=== PATIENT | female | born 2005 | race Caucasian/White ===

== ENCOUNTER 2024-11-28 15:10 | Emergency (ER) | payer OTHER, SELFPAY ==
--- NOTE | ~2024-11-28 | CT_ITS ---
History: Fall PROCEDURE: CT head without contrast. COMPARISON: None TECHNIQUE: Axial imaging of the head performed from the skull base to the vertex without IV contrast. Sagittal a nd coronal reformations obtained. DLP: 605 mGy-cm FINDINGS: The ventricles are normal in size, shape and position. There is no mass, mass effect or midline shift. There is no abnormal extra-axial fluid collection or intracranial hemorrhage. Visualized paranasal sinuses are clear. The mastoid air cells are well aerated. No acute displaced fractures within the overlying cranium. Impression: No acute intracranial hemorrhage or suspicious mass effect. Reviewed, dictated and finalized at location A. HIATRIC NURSING AIDE Impression: No acute intracranial hemorrhage or suspicious mass effect.
[2024-11-28 15:18] VITALS: BP 124/81; PULSE 82; RESP 17; TEMP 36.6; O2SAT 99
--- NOTE | 2024-11-28 15:54 | ED_ITS ---
HPI - Fall General Chief Complaint: Fall <Justine Martinez PA-C - Last Filed: 11/28/24 18:56> Stated Complaint: fall, head injury <Justine Martinez PA-C - Last Filed: 11/28/24 18:56> Time Seen by Provider: 11/28/24 17:03 <Justine Martinez PA-C - Last Filed: 11/28/24 18:56> Focused HPI: 18-year-old female presents emergency department for a head injury that occurred a couple hours prior to arrival. Patient states she was using her electric long board when she fall and hit the right side of her head. She did not lose consciousness. She is not anticoagulated. She also obtained abrasions to her right elbow right knee. Vaccines are up-to-date. Denies neck pain or back pain, other injuries acquired GENERAL: Well-appearing, well-nourished, and in no acute distress. HEAD: Normocephalic, atraumatic. No scalp tenderness, lacerations or abrasions, crepitus or deformities NECK/BACK: No cervical, thoracic or lumbar spinous tenderness, crepitus, step- offs or deformities CHEST: Clear to auscultation. ?No respiratory distress. EXT: Superficial abrasions to the right elbow and right knee with no active bleeding, full active and passive range of motion of joints HEART: Regular rate and rhythm.? NEURO: ?Alert and oriented x3. Patient screened in triage and initial orders placed.? ?Additional care and disposition to be based upon?diagnostic testing and treatment. <Justine Martinez PA-C - Last Filed: 11/28/24 18:56> Review of Systems Review of Systems: CONSTITUTIONAL: Denies fever EYES: Denies visual changes GASTROINTESTINAL: Denies vomiting MUSCULOSKELETAL: Denies back pain, joint pain, or myalgia. NEUROLOGIC: Reports headache. Denies numbness, or weakness. <Dotty Carlson PA-C - Last Filed: 11/28/24 18:10> All systems reviewed & are unremarkable except as noted in HPI and below <Dotty Carlson PA-C - Last Filed: 11/28/24 18:10> PMFSH Past Medical History Medical History: Medical History (Updated 11/28/24 @ 18:09 by Dotty Carlson PA-C) No active medical problems <Justine Martinez PA-C - Last Filed: 11/28/24 18:56> Social History Social History: Social History (Updated 11/28/24 @ 18:09 by Dotty Carlson PA-C) Substance use: never <Justine Martinez PA-C - Last Filed: 11/28/24 18:56> Exam Narrative: GENERAL: Well-appearing, well-nourished, and in no acute distress. HEAD: Normocephalic, atraumatic. EYES: PERRLA and EOMI. ENT: Nares clear, no rhinorrhea or epistaxis. Mucous membranes moist. Oropharynx without tonsillar hypertrophy exudate or other lesions. Bilateral TMs pearly mitchell non-bulging NECK: Supple. No adenopathy or masses. No midline spinal tenderness CHEST: Clear to auscultation. No respiratory distress. No wheezes rales or rhonchi HEART: Regular rate and rhythm. No murmur heard. Normal peripheral pulses. BACK: No midline spinal tenderness EXTREMITIES: Normal range of motion. No edema or obvious deformity. Strength equal in bilateral upper and lower extremities (5/5) SKIN: Warm, dry, no rash. NEURO: No focal deficits. Alert and oriented x3. Cranial nerves 2-12 grossly intact PSYCH: Normal mood and affect <Dotty Carlson PA-C - Last Filed: 11/28/24 18:10> Course Course Emergency Course: Patient updated on her workup and agrees with plan of care <Dotty Carlson PA-C - Last Filed: 11/28/24 18:10> Vital Signs Vital signs: Vital Signs Temperature 98 F 11/28/24 15:18 Pulse Rate 82 11/28/24 15:18 Respiratory Rate 17 11/28/24 15:18 Blood Pressure 124/81 11/28/24 15:18 Pulse Oximetry 99 11/28/24 15:18 Oxygen Delivery Room Air 11/28/24 15:18 Temperature 97.8 F 11/28/24 18:32 Pulse Rate 78 11/28/24 18:32 Respiratory Rate 18 11/28/24 18:32 Blood Pressure 130/70 11/28/24 18:32 Pulse Oximetry 98 11/28/24 18:32 Oxygen Delivery Room Air 11/28/24 15:18 <Justine Martinez PA-C - Last Filed: 11/28/24 18:56> Vital Signs Temperature 98 F 11/28/24 15:18 Pulse Rate 82 11/28/24 15:18 Respiratory Rate 17 11/28/24 15:18 Blood Pressure 124/81 11/28/24 15:18 Pulse Oximetry 99 11/28/24 15:18 Oxygen Delivery Room Air 11/28/24 15:18 Temperature 97.8 F 11/28/24 18:32 Pulse Rate 78 11/28/24 18:32 Respiratory Rate 18 11/28/24 18:32 Blood Pressure 130/70 11/28/24 18:32 Pulse Oximetry 98 11/28/24 18:32 Oxygen Delivery Room Air 11/28/24 15:18 <Dotty Carlson PA-C - Last Filed: 11/28/24 18:10> MDM - Fall MDM Narrative Medical decision making narrative: Patient presents to the emergency department after a fall today with head injury. She is neurologically intact. CT brain without acute findings. Patient was updated on her workup and agrees with plan of care. Instructed on further care of concussion. She is to follow up with primary provider. She was given warnings to return to the ER <Dotty Carlson PA-C - Last Filed: 11/28/24 18:10> Differential Diagnosis Differential diagnosis: Likely concussion without loss of consciousness and other (Close head injury, subdural hematoma) <Dotty Carlson PA-C - Last Filed: 11/28/24 18:10> Imaging Data Radiologist's impression: ITS Impressions Head CT 11/28/24 17:18 Impression: No acute intracranial hemorrhage or suspicious mass effect. <HUMBERTO Dwyer Last Filed: 11/28/24 18:10> Critical Care Time Critical Care Time Critical Care Time: No <HUMBERTO Dwyer Last Filed: 11/28/24 18:10> Discharge Plan Discharge Clinical Impression: Fall Qualifiers: Encounter type: initial encounter Qualified Code(s): W19.XXXA - Unspecified fall, initial encounter Head injury Qualifiers: Encounter type: initial encounter Qualified Code(s): S09.90XA - Unspecified injury of head, initial encounter <Justine Martinez PA-C - Last Filed: 11/28/24 18:56> Patient Disposition: Home, Self-Care <HUMBERTO Gaytan Last Filed: 11/28/24 18:56> Condition: Stable <HUMBERTO Gaytan Last Filed: 11/28/24 18:56> Instructions: Concussion (ED), Head Injury (ED) <HUMBERTO Gaytan Last Filed: 11/28/24 18:56> Additional Instructions: Return to the emergency department if you experience fever, vision changes, vomiting, weakness, numbness, or any other symptoms that are concerning to you. Rest. Remain well hydrated. Tylenol or ibuprofen as needed for pain Follow up with primary care doctor <Justine Martinez PA-C - Last Filed: 11/28/24 18:56> Patient Language: Maltese <Justine Martinez PA-C - Last Filed: 11/28/24 18:56> Follow-up/Referrals: PHYSICIAN,RADIATION THERAPY TECHNOLOGIST [Non-Staff] - Allen Price MD [Physician] - <HUMBERTO Gaytan Last Filed: 11/28/24 18:56>
--- OUTSIDE RECORDS SUMMARY | 2024-11-28 17:36 | XMS_ITS | Patient Health Summary ---
Author Organization [facility] Address [address] [place] [address] Care Team Providers Care Demurrage Clerk Name Role Phone Ryland Iniguez MD Primary Care Provider [phone] [facility],non-owned Affiliates and Associated Physician Practices is amultiple site organization consisting of ambulatory clinics and hospital sitesin [place], [place], [place] and [place]. This disclosure is being madepursuant to the Care Everywhere program and may not contain all information available regarding this patient. Last updated 18.[facility] Allergies No known active allergies Medications * Be aware that medications may not be up to date on this document. Alwaysverify current medications with the patient. * dicyclomine (BENTYL) 10 MG capsule Take 10 mg by mouth 4 times daily * omeprazole (PRILOSEC) 40 MG capsule Take 40 mg by mouth daily before breakfast * amitriptyline (ELAVIL) 10 MG tablet Take 15 mg by mouth at bedtime * ALBUTEROL IN Active Problems Problem Noted Date Diagnosed Date Asthma IBS (irritable bowel syndrome) Social History Tobacco Use Types Packs/Day Years Used Date Smoking Tobacco: Never Smokeless Tobacco: Never Alcohol Use Standard Drinks/Week Comments No 0 (1 standard drink = 0.6 oz pur e alcohol) Sex and Gender Information Value Date Recorded Sex Assigned at Not on file Gender Identity Not on file Sexual Orientation Not on file Last Filed Vital Signs Vital Sign Reading Time Taken Comments Blood Pressure 106/64 05/15/2019 11:00 AM CDT Pulse 81 05/15/2019 11:00 AM CDT Temperature - - Respiratory Rate - - Oxygen Saturation - - Inhaled Oxygen Concentration - - Weight 58.1 kg (128 lb) 05/15/2019 11:00 AM CDT Height 166.4 cm (5' 5.5 ) 05/15/2019 11:00 AM CD T Body Mass Index 20.98 05/15/2019 11:00 AM CDT Body Mass Index Percentile 66.77% 05/15/2019 11: 00 AM CDT Growth Chart: [facility] (Girls, 2- 20 Years) Care Teams Demurrage Clerk Relationship Specialty [place] [address] [address] PCP - General Pediatrics 05/15/19
--- OUTSIDE RECORDS SUMMARY | 2024-11-28 17:36 | XMS_ITS | Referral Summary ---
Author Organization [facility] Address [address] [place] [address] Care Team Providers Care Instrument Lens Inspector Name Role Phone Ryland Iniguez MD Primary Care Provider [phone] Source Comments [facility],non-owned Affiliates and Associated Physician Practices is amultiple site organization consisting of ambulatory clinics and hospital sitesin [place], [place], [place] and [place]. This disclosure is being madepursuant to the Care Everywhere program and may not contain all information available regarding this patient. Last updated 18.[facility] Allergies No known active allergies Medications * Be aware that medications may not be up to date on this document. Alwaysverify current medications with the patient. Medication Sig Dispensed Refills Start Date End Date Status dicyclomine (BENTYL) 10 MG capsule Take 10 mg by mouth 4 times daily Active omeprazole (PRILOSEC) 40 MG capsule Take 40 mg by mouth daily before breakfast Active amitriptyline (ELAVIL) 10 MG tablet Take 15 mg by mouth at bedtime Active ALBUTEROL IN Active Active Problems Problem Noted Date Diagnosed Date [...] 05/15/2019 11: 00 AM CDT Growth Chart: [facility] (Girls, 2- 20 Years) Plan of Treatment Not on file Care Teams Instrument Lens Inspector Relationship Specialty [place] [address] [facility] [address] [place] [id number] PCP - General Pediatrics 05/15/19
--- OUTSIDE RECORDS SUMMARY | 2024-11-28 17:36 | XMS_ITS | Patient Health Record ---
Author Organization [facility] Address [address] [place] [address] [place] [address] Care Team Providers Care Edger Machine Operator Name Role Phone SalomónRyland vaughan Primary Care Provider Unavaila patel Lara MD, Magdaleno Unavailable [phone] ALLERGIES No Known Allergies REASON FOR REFERRAL No Information MEDICATIONS Medication SIG (Take, Route, Frequency, Duration) Notes Start Date End Date Status Zafemy Active Naproxen Active Zoloft Active IMMUNIZATIONS Vaccine Route Administration Date Status Comme nts Influenza Unknown 01/29/2023 Administered pneumoccocal Unknown 01/29/2023 Administered SOCIAL HISTORY Tobacco Use: Social History Observation Description Date Details (start date - stop date) Never Smoker NA - NA Sex Assigned At : Social History Observation Description Sex Assigned At Unknown Tobacco Use: Question Answer Notes Patient is a: nonsmoker Alcohol screening: Question Answer Notes Did you have a drink containing alcohol in the p ast year? No Points 0 Interpretation Negative PROBLEMS Problem Type ICD Code Onset Dates Problem Status W/U Status Risk SNOMED Code Notes Problem Patellar tendinitis, right knee (M76.51) 01/22/2023 Active confirmed [id number] PLAN OF TREATMENT No Information Insurance Providers Payer Name Payer Address Payer Phone Subscriber Number Group Number Insured Name Patient Relationship to Insured Coverage Start Date Coverage End Date Cigna [address] BRENDA CINTRON, JACKELYN [phone] [id number] Sp Askew [facility] Child - Insured has Financial Responsibility MEDICAL (GENERAL) HISTORY Medical History History ICD Code depression asthma Surgical History Surgery Date(Month/Year)
--- OUTSIDE RECORDS SUMMARY | 2024-11-28 17:36 | XMS_ITS | Continuity of Care Document ---
Author Organization [facility] Address [address] [place] [address] Phone Care Team Providers Care Cafe Worker Name Role Phone Heather COOK, Jyoti Unavailable Unavailable Allergies, Adverse Reactions, Alerts Substance Reaction Status Criticality No Known Allergies Active No Inform ation Medications Medication Instructions Dosage Effective Dates (start - stop) Status Comments DYMISTA (unknown strength) Not Available - Active Advance Directives Directive Yes / No Effective Date File Name No Information Encounters Encounter Description Practice Location Reason(s) For Visit Diagnoses Date Provider Providers Copied on Encounter [facility], [address], [facility], [phone] [facility] No Information 6 Heather Montes. [address] [facility] [address], [place], [id number] . tel: [phone] [facility], [address] [facility] [address], [place], [facility], tel:[phone] [facility] Medial tibial stress syndrome, right, initial encounterMedial tibial stress syndrome, left, initial encounter 6 Heather Montes. [address] [facility] [address], [place], [id number] . tel: [phone] Family History Family Member Type Diagnosis Age At Onset No Information Payers Payer name Insurance type Covered constitution party ID Authoriza tion(s) No Information Social History Type Description Quantity Date Captured Comments Sex Female Smoking Status No Information Chief Complaint And Reason For Visit No Information Reason For Referral Reason For Referral No Information History Of Present Illness Encounter Date Complaint History Of Prese nt Illness No Information Functional Status Date Functional Assessmen t No Information Instructions Date Instruction Additional Infor mation No Information Assessments Type Assessment Date No Information Patient Care Teams Name Effective Dates (start - stop) Status Members No Information
--- OUTSIDE RECORDS SUMMARY | 2024-11-28 17:36 | XMS_ITS | Clinical Summary ---
Author Organization [facility] Address [address] [place] [address] Care Team Providers Care Fish Cutting Machine Operator Name Role Phone No, Physician Primary Care Provider [phone] Ryland Iniguez MD Unavailable [phone] Allergies No known active allergies Medications albuterol HFA (PROVENTIL HFA,VENTOLIN HFA,PROAIR HFA) 90 mcg/actuation inhaler INL 1 PUFF PO Q 4 TO 6 H PRF SOB OR WHZ 0 04/01/2019 Active sertraline (Zoloft) 50 mg tablet 1 tablet by oral route daily 06/07/2022 Active Zafemy 150-35 mcg/24 hr 09/18/2022 Active Active Problems Problem Noted Date Diagnosed Date Patellofemoral chondrosis of right knee 02/29/20 23 Weakness of right hip 02/28/2023 Asthma 11/21/2022 Patellar subluxation, right, initial encounter 0 11/21/2022 Constipation 11/19/2020 IBS (irritable bowel syndrome) 01/21/2020 Anxiety 01/01/2020 Syncope 07/28/2015 Abnormal electrocardiography 07/28/2015 Syncope and collapse 07/28/2015 Atopic conjunctivitis 02/13/2014 Migraine 01/23/2013 Allergic rhinitis 08/17/2007 Esophageal reflux 02/23/2005 Medical History Medical History Date Comments Asthma GERD (gastroesophageal reflux disease) Asthma due to seasonal allergies Gluten intolerance Dairy product intolerance IBS (irritable bowel syndrome) Family History Medical History Relation Name Comments Arthritis Maternal Grandmother Diabetes Mother Low Back Pain Mother Scoliosis Mother Relation Name Status Comments Maternal Grandmother Mother Social History Tobacco Use Types Packs/Day Years Used Date Smoking Tobacco: Never Smokeless Tobacco: Never Tobacco Cessation:Counseling Given: No Alcohol Use Standard Drinks/Week Comments Never 0 (1 standard drink = 0.6 oz pur e alcohol) AUDIT-C Answer Date Recorded Frequency of Alcohol Consumption Never 06/25/2019 Average Number of Drinks Not on file 019 Frequency of Binge Drinking Not on file 01/2019 Personal Safety Answer Date Recorded Getting School Help Needed Not on file 12/16 Comments No Sex and Gender Information Value Date Recorded Sex Assigned at Not on file Legal Sex Female 12:38 AM [employer] Gender Identity Not on file Sexual Orientation Not on file Obstetrics History Growth Chart Information Age Height Weight Jidjub-hmo-ezqw th Percentile BMI Percentile Head Circum Head Circum Percentile Date 17 years 75.6 kg (166 lb 11.2 oz) 2022 16 years 76.4 kg (168 lb 8 oz) 2022 13 years 164 cm (5' 4.57 ) 58.6 kg (129 lb 3.2 oz) 73.42%* 2018 9 years 154 cm (5' 0.63 ) 41 kg (90 lb 6.2 oz) 51.57%* 2014 * [facility] (Girls, 2-20 Years) Last Filed Vital Signs Vital Sign Reading Time Taken Comments Blood Pressure 118/66 07/30/2015 11:10 AM CDT Pulse 77 07/30/2015 11:10 AM CDT Temperature - - Respiratory Rate - - Oxygen Saturation - - Inhaled Oxygen Concentration - - Weight 75.6 kg (166 lb 11.2 oz) 02/27/2023 3:15 PM CDT Height 164 cm (5' 4.57 ) 06/25/2019 4:58 PM CDT Body Mass Index - - Plan of Treatment Health Maintenance Due Date Last Done Comments Depression Screening 2004 Hepatitis C Screening 2004 Varicella Vaccines (2 of 2 - 2-dose childhood series) 05/09/2010 02/14/2010 Pneumococcal vaccine <65 (1 of 1 - PPSV23 or PCV20) 2010 03/29/2006, 07/04/2005, 04/25/2005, Additional history exists DTaP/Tdap/Td Vaccine (6 - Tdap) 12/25/2015 02/14/2010, 03/29/2006, 07/04/2005, Additional history exists HPV Vaccines (2 - 3-dose series) 04/21/2022 03/24/2022 Meningococcal B Vaccine (2 of 2 - Risk Bexsero 2-dose series) 04/21/2022 03/24/2022 Regular Well Visit/Exam 18-64 2022 Covid-19 Vaccine ( season) 2024 10/17/2021, 03/01/2021, 02/08/2021 Influenza Vaccine (#1) 2024 7, 08/17/2007, 10/31/2005, Additional history exists Meningococcal Vaccine Aged Out No michelle maco eligible based on patient's age to complete this topic Insurance FootnoteNA FootnoteNA CIGNA CIGNA CIGNA CIGFABIO Care Teams Fish Cutting Machine Operator Relationship Specialty Start Date End Date No, Physician PCP - General 02/20/23 [place] [address] [address] 02/20/23
--- OUTSIDE RECORDS SUMMARY | 2024-11-28 17:36 | XMS_ITS | Clinical Summary ---
Author Organization [facility] Address [address] [place] [address] Care Team Providers Care Clinical Reviewer Name Role Phone Ryland Iniguez MD Primary Care Provider [phone] Source Comments [facility],non-owned Affiliates and Associated Physician Practices is amultiple site organization consisting of ambulatory clinics and hospital sitesin [place], [place], [place]. This disclosure is being madepursuant to the Care Everywhere program and may not contain all information available regarding this patient. Last updated 18.[facility] Allergies No known active allergies Medications * [...] Diagnosed Date Asthma IBS (irritable bowel syndrome) Family History Relation Name Status Comments Father Alive Mother Alive Social History Tobacco Use Types Packs/Day Years [...] 05/15/2019 11: 00 AM CDT Growth Chart: [facility] (Girls, 2- 20 Years) Plan of Treatment Health Maintenance Due Date Last Done Comments HIV SCREENING 12/25/2019 HPV VACCINE (1 - 3-dose series) 12/25/2019 CHLAMYDIA/GONORRHEA SCREENING 2020 MENINGOCOCCAL (Group B) VACC INE (1 of 2 - Standard) 2020 HEPATITIS C SCREENING 12/20/2022 DTAP/TDAP/TD VACCINES (1 - Tdap) 12/25/2023 HEPATITIS B VACCINE (1 of 3 - 19+ 3-dose series) 12/25/2023 PNEUMOCOCCAL VACCINE (1 of 2 - PCV) 12/25/2023 COVID-19 VACCINE (1 - 2023-2 5 season) 2024 INFLUENZA VACCINE (#1) 2024 DEPRESSION SCREENING 10/22/2024 ZOSTER VACCINE (1 of 2) 2054 HIB VACCINE Aged Out No longer eligi ble based on patient's age to complete this topic MENINGOCOCCAL VACCINE Aged Out No michelle maco eligible based on patient's age to complete this topic Care Teams Clinical Reviewer Relationship Specialty [place] [address] [place] [address] PCP - General Pediatrics 05/15/19
--- OUTSIDE RECORDS SUMMARY | 2024-11-28 17:36 | XMS_ITS | Continuity of Care Document ---
Author Organization [facility] Address [address] [place] [address] Phone Care Team Providers Care Card Puncher Name Role Phone Ryland Iniguez MD Unavailable Unavailable Allergies, Adverse Reactions, Alerts Substance Reaction Status Criticality No Known Allergies Active No Inform ation Medications Medication Instructions Dosage Effective Dates (start - stop) Status Comments Zoloft 50 mg tablet 1 tablet by oral route daily - Active 90 day supply, stable on dose albuterol sulfate HFA 90 mcg/actuation aerosol inhaler 1 puff by inhalation route every 4 to 6 hours prn shortness of breath or wheezing - Active Aerochamber Plus Flow-Vu use with mdi - Active Flonase 50 mcg/actuation nasal spray,suspension spray 2 spray by intranasal route every day in each nostril - Active Gas-X Extra Strength 125 mg capsule - Active Vitamin D3 Complete 18 mg iron-800 mcg-150 mg tablet - Active Procedures Procedure Date Brief Emotional/Behavioral A ssessment, With Scoring/Doct, Per [facility] Instrument Clin depression screen doc Brief Emotional/Behavioral A ssessment, With Scoring/Doct, Per [facility] Instrument OFFICE BULZG-YLQ-GTLUNLFL BODY MASS INDEX DOCD SYST BP LT 130 MM HG DIAST BP < 80 MM HG SCREENING TEST OF VISUAL ACUITY, QUANTIT ATIVE, BILATERAL Brief Emotional/Behavioral A ssessment, With Scoring/Doct, Per [facility] Clin depression screen doc Brief Emotional/Behavioral A ssessment, With Scoring/Doct, Per [facility] Instrument AUDIOGRAM, SCREENING PREVENTATIVE-EST: 18- BODY MASS INDEX DOCD SYST BP LT 130 MM HG DIAST BP < 80 MM HG IMADM ANY ROUTE 1ST VAC/TOX (Bexsero) Meningococcal Recombinant, Pro tein/Outer Membrane Brief Emotional/Behavioral A ssessment, With Scoring/Doct, Per [facility] Instrument Clin depression screen doc Brief Emotional/Behavioral A ssessment, With Scoring/Doct, Per [facility] Instrument OFFICE CMULT-DSL-EUFKDBFZ BODY MASS INDEX DOCD SYST BP LT 130 MM HG DIAST BP < 80 MM HG OFFICE EHGAC-PQU-SWNJJJBK TEST, HCG, QL (U) ESSE 2021 OFFICE ZGJMI-ETQ-PLZZEWQI OFFICE BLLTQ-XUV-WBPALBIT Brief Emotional/Behavioral A ssessment, With Scoring/Doct, Per St[facility] Instrument Brief Emotional/Behavioral A ssessment, With Scoring/Doct, Per [facility] Instrument Clin depression screen doc PREVENTATIVE-EST: 10-07 BODY MASS INDEX DOCD IMMUN ADMIN (INC PERCUTANEOUS) EACH ADDT L HPV IM Types 6, 11, 16, 18, 31, 33, 45, 58 NONVALENT 9vHPV 3 DOSE SCHED IMMUN ADMIN (INC PERCUTANEOUS) SINGLE, F IRST INJ (Bexsero) Meningococcal Recombinant, Pro tein/Outer Membrane OFFICE OSDWQ-LSY-UMARKMVQ OFFICE WSWPR-GIP-BPIJMOIU OFFICE JJVML-JTF-CUHAWUAM COVID-19, Amplified Probe Technique Brief Emotional/Behavioral A ssessment, With Scoring/Doct, Per [facility] Instrument Clin depression screen doc Brief Emotional/Behavioral A ssessment, With Scoring/Doct, Per [facility] Instrument HPV IM Types 6, 11, 16, 18, 31, 33, 45, 58 NONVALENT 9vHPV 3 DOSE SCHED IMADM ANY ROUTE 1ST VAC/TOX MENACTRA MENINGOCOCCAL CONJUGATE, QUAD, VACCINE PREVENTATIVE-EST: - OFFICE WUQCU-XSR-WBBNDPHG BODY MASS INDEX DOCD OFFICE TGFDB-PCC-UKTHTZHY Brief Emotional/Behavioral A ssessment, With Scoring/Doct, Per [facility] Instrument Clin depression screen doc Brief Emotional/Behavioral A ssessment, With Scoring/Doct, Per St[facility] Instrument OFFICE ELKVF-ARI-TXGTNMCG BODY MASS INDEX DOCD Brief Emotional/Behavioral A ssessment, With Scoring/Doct, Per Stndrd Instrument Brief Emotional/Behavioral A ssessment, With Scoring/Doct, Per [facility] Instrument Pt inelig neg scrn depres OFFICE YSHXF-UYN-DDGEMAMK BODY MASS INDEX DOCD Brief Emotional/Behavioral A ssessment, With Scoring/Doct, Per [facility] Instrument Clin depression screen doc Brief Emotional/Behavioral A ssessment, With Scoring/Doct, Per [facility] Instrument OFFICE RENRV-RBA-QQWXZMPP Brief Emotional/Behavioral A ssessment, With Scoring/Doct, Per [facility] Instrument Clin depression screen doc Brief Emotional/Behavioral A ssessment, With Scoring/Doct, Per St[facility]rd Instrument IMADM ANY ROUTE 1ST VAC/TOX HPV IM Types 6, 11, 16, 18, 31, 33, 45, 58 NONVALENT 9vHPV 3 DOSE SCHED PREVENTATIVE-EST: 10-07 BODY MASS INDEX DOCD OFFICE NZYES-NWC-YCRQHFSF RAPID STREP A CULTURE, PRESUMPATIVE, SCREENING ONLY Se Advance Directives Directive Yes / No Effective Date File Name Life Support Not Answered N/A N/A Intubation Not Answered N/A N/A Antibiotics Not Answered N/A N/A IV Fluid Support Not Answered N/A N/A Tube Feed Not Answered N/A N/A Other Directive N/A N/A WARNING:The information contained in this section is historical and is provided for information only and does not constitute a legal document or any assurance that the information is still accurate. Please verify the information with the day of the legal document before using it for clinical purposes. Encounters Encounter Description Practice Location Reason(s) For Visit Diagnoses Date Provider Providers Copied on Encounter [facility], [address], [place], [place], [address] , tel: [phone] [facility] No Information 4 Hira Marcelino. [address] [address], [place], [place], [address], [place]. tel:[phone] [facility], [address], [place], [place], [address] , tel: [phone] [facility] No Information 4 Hira Marcelino. [address] [facility] [address], [place], [place], [address], [place]. tel:[phone] OFFICE KLFAS-GTK-VO PANDED [facility], [address], [place], [place], [address] , [place] tel:[phone] [facility] anxiety and depression (chief complaint) Anxiety 4 Hira Marcelino. [address] [place] [address], [address], [place], [place], [address], [place]. tel:[phone] Referring Provider: Ryland Iniguez , [address] [place] [address] [address], [place], [address] . tel:[phone] PREVENTATIVE -EST: 18-39 [facility], [address], [place], [place], [address] , [place] tel:[phone] [facility] well exam (chief complaint)a nxiety and depression (chief complaint) Encounter for routine child health examination without abnormal findingsAnxietyP ain, joint, knee, leftDysmenorrhea in adolescentDyspep siaDepression, unspecified depression typeSeasonal allergic rhinitis due to pollenMaternal family history of cancerIrritable bowel syndrome, unspecified typeGender dysphoria of adolescence 3 Hira Marcelino. [address] [place] [address], [address], [place], [place], [address], [place]. tel:[phone] Referring Provider: Ryland Iniguez , [address] [place] [address] [address], [place], [address] . tel:[phone] OFFICE CCESR-DMZ-DU [facility], [address], [place], [place], [address] , [place] tel:[phone] [facility] anxiety and depression (chief complaint) AnxietyPain, joint, knee, left 3 Hira Marcelino. [address] [place] [address], [address], [place], [place], [address], [place]. tel:[phone] Referring Provider: Ryland Iniguez , [address] [place] [address] [address], [place], [address] . tel:[phone] OFFICE JUSZO-LCY-ZD TAILED [facility], [address], [place], [place], [address] , [place] tel: [phone] [facility] acute problem (chief complaint) DysmenorrheaMate rnal family history of cancer 2 Freddie Mendoza. [address] [facility], [place], [place], [address], [place]. tel:[phone] Referring Provider: Ryland Iniguez , [address] [place] [address] [address], [place], [address] . tel:[phone] OFFICE EXSBC-URZ-EL [facility], [address], [place], [place], [address] , [place] tel: [phone] [facility] acute problem (chief complaint) Dyspepsia 2 Hira Marcelino. [address] [place] [address], [address], [place], [place], [address], [place]. tel:[phone] Referring Provider: Ryland Iniguez , [address] [place] [address] [address], [place], [address] . tel:[phone] OFFICE AWJMQ-TZH-TH [facility], [address], [place], [place], [address] , [place] tel:[phone] [facility] acute problem (chief complaint) Depression, unspecified depression typeAnxietyStrai n of right trapezius muscle, initial encounter 2 Hira Marcelino. [address] [place] [address], [address], [place], [place], [address], [place]. tel:[phone] Referring Provider: Ryland Iniguez , [address] [place] [address] [address], [place], [address] . tel:[phone] PREVENTATIVE -EST: 1217 [facility], [address], [place], [place], [address] , [place] tel: [phone] [facility] well exam (chief complaint) Encounter for routine child health examination without abnormal findingsIrritabl e bowel syndrome, unspecified typeAnxietySeaso nal allergic rhinitis due to pollenDepression , unspecified depression typeIntractable migraine without status migrainosus, unspecified migraine type 2 Hira Marcelino. [address] [place] [address], [address], [facility], [place], [address], [place]. tel:[phone] Referring Provider: Ryland Iniguez , [address] [place] [address] [address], [place], [address] . tel:[phone] [facility], [address], [place], [place], [address] , [place] tel:[phone] [facility] No Information Mar- 2 Hira Marcelino. [address] [place] [address], [address], [facility], [place], [address], [place]. tel:[phone] Referring Provider: Ryland Iniguez , [address] [place] [address] [address], [place], [address] . tel:[phone] OFFICE WNRSB-OCI-NI [facility], [address], [place], [place], [address] , [place] tel:[phone] [facility] acute problem (chief complaint) Low back pain, unspecified back pain laterality, u 2 Hira Marcelino. [address] [place] [address], [address], [place], [place], [address], [place]. tel:[phone] Referring Provider: Ryland Iniguez , [address] [place] [address] [address], [place], [address] . tel:[phone] OFFICE HMFUW-LJV-TK [facility], [address], [place], [place], [address] , [place] tel:[phone] [facility] acute problem (chief complaint) Low back pain, unspecified back pain laterality, u 2 Hira Marcelino. [address] [place] [address], [address], [facility], [place], [address], [place]. tel:[phone] Referring Provider: Ryland Iniguez , [address] [place] [address] [address], [place], [address] . tel:[phone] OFFICE XDQUW-SMQ-KU [facility] [address], [place], [place], [address] , [place] tel:[phone] [facility] acute problem (chief complaint) COVID-19 2 Ianbraden Marin. [address] [facility], [place], [place], [address], [place]. tel:[phone] Referring Provider: Ryland Iniguez , [address] [place] [address] [address], [place], [address] . tel:[phone] [facility], [address], [place], [place], [address] , [place] tel:[phone] [facility] No Information 1 Hira Marcelino. [address] [place] [address], [address], [place], [place], [address], [place]. tel:[phone] PREVENTATIVE -EST: 10-07 [facility], [address], [place], [place], [address] , tel: [phone] [facility] well exam (chief complaint)a cute problem (chief complaint) Encounter for routine child health examination without abnormal findingsSeasonal allergic rhinitis due to pollenIrritable bowel syndrome, unspecified typeAnxietyCough variant asthma 1 Hira Marcelino. [address] [place] [address], [address], [place], [place], [address], [place]. tel:[phone] Referring Provider: Ryland Iniguez , [address] [place] [address] [address], [place], [address] . tel:[phone] OFFICE QFZHW-JOI-WN [facility] [address], [place], [place], [address] , [place] tel:[phone] [facility] acute problem (chief complaint) Other urticaria 1 Kimo Marin. [address] [facility], [place], [place], [address], [place]. tel:[phone] Referring Provider: Ryland Iniguez , [address] [place] [address] [address], [place], [address] . tel:[phone] [facility], [address], [place], [place], [address] , tel: [phone] Care Management Problem related to psychosocial circumstancesAnx ietyDepression, unspecified depression type 1 Hira Marcelino. [address] [place] [address], [address], [place], [place], [address], [place]. tel:[phone] OFFICE CKDHA-RAW-RQ [facility], [address], [place], [place], [address] , tel: [phone] [facility] acute problem (chief complaint) AnxietyAbdominal painDepression, unspecified depression typeProblem related to psychosocial circumstances 1 Hira Marcelino. [address] [place] [address], [address], [place], [place], [address], [place]. tel:[phone] Referring Provider: Ryland Iniguez , [address] [place] [address] [address], [place], [address] . tel:[phone] OFFICE FPDQP-DMC-EI [facility], [address], [place], [place], [address] , tel:[phone] [facility] acute problem (chief complaint) AnxietySleep stage dysfunction Sep-0 2- 0 Hira Marcelino. [address] [place] [address], [address], [place], [place], [address], [place]. tel:[phone] Referring Provider: Ryland Iniguez , [address] [place] [address] [address], [place], [address] . tel:[phone] OFFICE ZOGSR-AMR-JN [facility], [address], [place], [place], [address] , tel:[phone] [facility] acute problem (chief complaint) AnxietySeasonal allergic rhinitis due to pollenSleep stage dysfunctionIrrit able bowel syndrome, unspecified type Apr-0 1-202 0 Hira Marcelino. [address] [place] [address], [address], [place], [place], [address], [place]. tel:[phone] Referring Provider: Ryland Iniguez , [address] [place] [address], [place], [address] . tel:[phone] PREVENTATIVE -EST: 12 [facility], [address], [place], [place], [address] , [place] tel: [phone] [facility] well exam (chief complaint) AnxietyAllergic rhinoconjunctivi tisSeasonal allergic rhinitis due to pollenProblem related to psychosocial circumstancesCou gh variant asthmaSleep stage dysfunctionDisor derMigraine without aura and without status migrainosus, not intractableEncou nter for routine child health examination with abnormal findingsAbdomina l pain 0 Hira Marcelino. [address] [place] [address], [address] [address], [place], [place], [address], [place]. tel:[phone] Referring Provider: Ryland Iniguze , [address] [place] [address], [place], [address] . tel:[phone] OFFICE QILEN-GEO-YB PANDED [facility], [address], [place], [place], [address] , [place] tel:[phone] [facility] acute problem (chief complaint) Acute upper respiratory infection, unspecifiedUnspe cified acute conjunctivitis, unspecified eye Sep-201 9 Dario Neal. [address] [place] [address], [address], [place], [place], [address], [place]. tel:[phone] Referring Provider: Ryland Iniguez , [address] [place] [address] [address] [facility], [place], [address] . tel:[phone] [facility], [address], [place], [place], [address] , tel:[phone] [facility] CoughMild intermittent asthma with acute exacerbationSuba cute sinusitis, unspecified location Jan-201 9 Hira Marcelino. [address] [place] [address], [address], [place], [place], [address], . tel:[phone] Referring Provider: Ryland Iniguez , [address] [place] [address] [address], [place], [address] . tel:[phone] [email or web address], [address], [place], [place], [address] , tel:[phone] [email or web address] Diarrhea, unspecified type Feb-0 9 Hira Marcelino. [address] [place] [address], [address], [place], [place], [address], [place]. tel:[phone] Referring Provider: Ryland Iniguez , [address] [place] [address] [address], [place], [address] . tel:[phone] [facility], [address], [place], [place], [address] , tel:[phone] [facility] Cough variant asthmaAcute upper respiratory infection, unspecified 8 Hira Marcelino. [address] [place] [address], [address], [place], [place], [address], [place]. tel:[phone] Referring Provider: Ryland Iniguez , [address] [place] [address] [address], [place], [address] . tel:[phone] [facility], [address], [place], [place], [address] , tel:[phone] [facility] CoughCough variant asthma 8 Dionte Dixon. [address] [place] [address], [address], [place], [place], [address], [place]. tel:[phone] Referring Provider: Ryland Iniguez , [address] [place] [address] [address], [place], [address] . tel:[phone] [facility], [address], [place], [place], [address] , tel:[phone] [facility] Cough variant asthma 3 0 7 Hira Marcelino. [address] [place] [address], [address], [place], [place], [address], [place]. tel:[phone] Referring Provider: Ryland Iniguez , [address] [place] [address] [address], [place], [address] . tel:[phone] [facility], [address], [place], [place], [address] , [place] tel:[phone] [facility] Abdominal pain 7 Trenton Cleveland. [address] [place] [address], [address], [place], [place], [address], [place]. tel:[phone] Referring Provider: Ryland Iniguez , [address] [place] [address] [address], [place], [address] . tel:[phone] [facility], [address], [place], [place], [address] , [place] tel: [phone] [facility] Abdominal pain 7 Hira Marcelino. [address] [place] [address], [address], [place], [place], [address], [place]. tel:[phone] Referring Provider: Ryland Iniguez , [address] [place] [address] [address], [place], [address] . tel:[phone] [facility], [address], [place], [place], [address] , [place] tel:[phone] [facility] Encounter for routine child health examination without abnormal findingsAllergic rhinitis, unspecifiedMild persistent asthma without complicationAbdo ramon painSleep stage dysfunction 7 Hira Marcelino. [address] [place] [address], [address], [place], [place], [address], [place]. tel:[phone] Referring Provider: Ryland Iniguez , [address] [place] [address] [address], [place], [address] . tel:[phone] [facility], [address], [place], [place], [address] , tel:[phone] [facility] Abdominal pain 7 Hira Marcelino. [address] [place] [address], [address], [facility], [place], [address], [place]. tel:[phone] Referring Provider: Ryland Iniguez , [address] [place] [address] [address], [place], [address] . tel:[phone] [facility], [address], [place], [place], [address] , [place] tel:[phone] [facility] Pain of lower extremity, unspecified laterality Apr- 8 6 Hira Marcelino. [address] [place] [address], [address], [facility], [place], [address], [place]. tel:[phone] Referring Provider: Ryland Iniguez , [address] [place] [address] [address], [place], [address] . tel:[phone] [facility], [address], [place], [place], [address] , [place] tel: [phone] [facility] Abdominal painAllergic rhinitis, unspecifiedConst ipation, unspecified constipation type Dec- 6201 6 Kimo Marin. [address] [place] [address], [address], [place], [place], [address], [place]. tel:[phone] Referring Provider: Ryland Iniguez , [address] [place] [address] [address], [place], [address] . tel:[phone] [facility], [address], [place], [place], [address] , [place] tel:[phone] [facility] Acute pharyngitis, unspecified Dec- 5 Hira Marcelino. [address] [place] [address], [address], [facility], [place], [address], [place]. tel:[phone] Referring Provider: Ryland Iniguez , [address] [place] [address] [address], [place], [address] . tel:[phone] [facility], [address], [place], [place], [address] , [place] tel: [phone] [facility] Convulsive syncopeOther convulsionsViral illness Sep- 5 Hira Macrelino. [address] [facility], [address], [place], [place], [address], [place]. tel:[phone] Referring Provider: Ryland Iniguez , [address] [place] [address] [address], [place], [address] . tel:[phone] [facility], [address], [place], [place], [address] , tel:[phone] [facility] 1mo-18 year well child checkALLERGIC RHINITIS NOSAllergic rhinoconjunctivi tis 5 Hira Marcelino. [address] [place] [address], [address], [place], [place], [address], [place]. tel:[phone] Referring Provider: Ryland Iniguez , [address] [place] [address] [address], [place], [address] . tel:[phone] [facility], [address], [place], [place], [address] , tel:[phone] [facility] Viral illness Jan- 5 Hira Marcelino. [address] [place] [address], [address], [place], [place], [address], [place]. tel:[phone] Referring Provider: Ryland Iniguez , [address] [place] [address] [address], [place], [address] . tel:[phone] [facility], [address], [place], [place], [address] , [place] tel:[phone] [facility] URI 5 Kleber Yu. [address] [facility], [address], [place], [place], [address], [place]. tel:[phone] Referring Provider: Ryland Iniguez , [address] [place] [address] [address], [place], [address] . tel:[phone] [facility], [address], [place], [place], [address] , tel:[phone] [facility] Wrist sprain 4 Hira Marcelino. [address] [place] [address], [address], [place], [place], [address], . tel:[phone] Referring Provider: Ryland Iniguez , [address] [place] [address] [address], [place], [address] . tel:[phone] [facility], [address], [place], [place], [address] , tel:[phone] [facility] Allergic rhinoconjunctivi tis 4 Evan Alstona. [address] [place] [address], [address], [place], [place], [address], [place]. tel:[phone] Referring Provider: Ryland Iniguez , [address] [place] [address] [address], [place], [address] . tel:[phone] [facility], [address], [place], [place], [address] , tel:[phone] [facility] Streptococcal sore throat 3 Marichuy Sexton. [address] [place] [address], [address], [place], [place], [address], [place]. [phone] Referring Provider: Ryland Iniguez , [address] [place] [address] [address], [place], [address] . tel:[phone] [facility], [address], [place], [place], [address] , tel:[phone] [facility] [facility] of strep sore throat 3 Marichuy Sexton. [address] [place] [address], [address], [place], [place], [address], . [phone] Referring Provider: Ryland Iniguez , [address] [place] [address] [address], [place], [address] . tel:[phone] [facility], [address], [place], [place], [address] , [place] tel: [phone] [facility] Strep pharyngitis 3 Ianbraden Marin. [address] [facility], [address], [facility] [place], [address], [place]. [phone] Referring Provider: Taniazion Malin, [address] [facility] [address], [place], [address] . tel:[phone] [facility], [address], [place], [place], [address] , tel: [phone] [facility] Skin laceration 3 Hira Marcelino. [address] [facility], [address], [place], [place], [address], [place]. [phone] Referring Provider: Ryland Iniguez , [address] [place] [address] [address], [place], [address] . tel:[phone] [facility], [address], [place], [place], [address] , [place] tel:[phone] [facility] Abdominal pain, unspecified siteCoughUrticar ia 3 Dkdonny Acosta. [address] [facility], [address], [place], [place], [address]. tel:[phone] Referring Provider: Ayo Tenorio, [address] [facility] [address], [place], [address]. tel:[phone] [facility], [address], [place], [place], [address] , tel:[phone] [facility] Acute upper respiratory infections of unspecified site 3 Marichuy Sexton. [address] [facility], [address], [facility] [place], [address], [place]. tel:[phone] Referring Provider: Ryland Iniguez , [address] [place] [address] [address], [place], [address] . tel:[phone] [facility], [address], [place], [place], [address] , [place] tel: [phone] [facility] Abdominal pain, generalizedIBS (irritable bowel syndrome) 2 Hira Marcelino. [address] [facility], [address], [place], [place], [address], [place]. tel:[phone] Referring Provider: Ryland Iniguez , [address] [place] [address] [address], [place], [address] . tel:[phone] [facility], [address], [place], [place], [address] , [place] tel: [phone] [facility] CoughAcute pharyngitis 2 Evan Esposito. [address] [place] [address], [address], [place], [place], [address], [place]. tel:[phone] Referring Provider: Ryland Iniguez , [address] [place] [address] [address], [place], [address] . tel:[phone] [facility], [address], [place], [place], [address] , [place] tel: [phone] [facility] Other specified viral wartsViral warts, unspecified 1 Hira Marcelino. [address] [place] [address], [address], [place], [place], [address], [place]. tel:[phone] Referring Provider: Ryland Iniguez , [address] [place] [address] [address], [place], [address] . tel:[phone] [facility], [address], [place], [place], [address] , [place] tel: [phone] [facility] Acute upper respiratory infections of unspecified site 1 Marichuy Sexton. [address] [place] [address], [address], [place], [place], [address], [place]. tel:[phone] Referring Provider: Ryland Iniguez , [address] [place] [address] [address], [place], [address] . tel:[phone] [facility], [address], [place], [place], [address] , tel: [phone] [facility] Abdominal pain, generalized Sep-0 -201 1 Hira Marcelino. [address] [facility], [address], [place], [place], [address], [place]. [phone] Referring Provider: Ryland Iniguez , [address] [place] [address] [address], [place], [address] . tel:[phone] [facility], [address], [place], [place], [address] , tel: [phone] [email or web address] [facility] Routine infant or child health checkEXTRINSIC ASTHMA, UNSPECIFIEDRouti ne infant or child health check Morgan-2 1 Hira Marcelino. [address] [place] [address], [address], [place], [place], [address], . tel:[phone] Referring Provider: Ryland Iniguez , [address] [place] [address] [address], [place], [address] . tel:[phone] [facility], [address], [place], [place], [address] , tel: [phone] [facility] EXTRINSIC ASTHMA NOS Oct-2 7-200 9 Hira Marcelino. [address] [place] [address], [address], [place], [place], [address], [place]. tel:[phone] [facility], [address], [place], [place], [address] , tel: [phone] [facility] ALLERGIC RHINITIS NOS Oct-2 7-200 7 Hira Marcelino. [address] [place] [address], [address], [place], [place], [address], [place]. tel:[phone] [facility], [address], [place], [place], [address] , tel: [phone] [facility] PNEUMONIA, ORGANISM NOS Nov-0 6-200 6 Hira Marcelino. [address] [facility], [address], [place], [place], [address], [place]. tel:[phone] [facility], [address], [place], [place], [address] , [place] tel: [phone] [facility] ESOPHAGEAL REFLUX 0 5-200 5 Hira Ryland. [address] [facility], [address], [place], [place], [address], [place]. tel:[phone] Family History Family Member Type Diagnosis Age At Onset No Information Immunizations Vaccine Date Status Comments meningococcal B, OMV, 2 dose schedule administered Source: New Immuniza tion Record HPV (9-valent) administered Source: New I mmunization Record meningococcal B, OMV, 2 dose schedule administered Source: New Immuniza tion Record Pfizer (Diluent Reconstitute d) COVID19 Vaccine, 0.3mL per dose, 2 doses, administered 21 days apart administered Note: [facility] ; Comfort rce: Other Provider HPV (9-valent) administered Source: New I mmunization Record meningococcal MCV4P administered Source: New Immunization Record Pfizer-BioNTech COVID19 Vaccine, 0.3mL per dose, 2 doses, administered 21 days apart administered Note: entered via [employer] card - EB ; Source: Other Provider Pfizer-BioNTech COVID19 Vaccine, 0.3mL per dose, 2 doses, administered 21 days apart administered Note: entered via [employer] card - EB ; Source: Other Provider HPV (9-valent) administered Source: New I mmunization Record Influenza, injectable, quadrivalent, preservative free, 0.5mL dosage administered Source: New Immuniza tion Record Hep A (ped/adol, 2 dose) administered Comfort rce: New Immunization Record meningococcal MCV4P administered Source: New Immunization Record Tdap administered Source: New Imm unization Record Hep A (ped/adol, 2 dose) administered Comfort rce: New Immunization Record Flu (split) (3 yrs or older) administered Note: VIS 05/16/2013 ; Source: New Immunization Record Flu (split) (3 yrs or older) administered Source: New Immunization Record 08910 - DTaP_DTP_DT_PEDS administered Comfort rce: Source Unspecified 13315 - Polio_OPV_IPV administered Source : Source Unspecified 90902 - MMR administered Source: Source Unspecified 10287 - Varicella administered Source: So urce Unspecified 66786 - Influenza administered Source: So urce Unspecified 41903 - Pneumococcal_PCV administered Comfort rce: Source Unspecified 50552 - DTaP_DTP_DT_PEDS, Hib administere d Source: Source Unspecified 44452 - Varicella administered Source: So urce Unspecified 38298 - MMR administered Source: Source Unspecified 70833 - Influenza administered Source: So urce Unspecified 53233 - Influenza administered Source: So urce Unspecified 10486 - Hepatitis_B administered Source: Source Unspecified 36714 - Polio_OPV_IPV administered Source : Source Unspecified 35162 - Hib administered Source: Source Unspecified 57106 - Pneumococcal_PCV administered Comfort rce: Source Unspecified 90717 - DTaP_DTP_DT_PEDS administered Comfort rce: Source Unspecified 70747 - Hepatitis_B administered Source: Source Unspecified 35957 - DTaP_DTP_DT_PEDS administered Comfort rce: Source Unspecified 51044 - Pneumococcal_PCV administered Comfort rce: Source Unspecified 64892 - Polio_OPV_IPV administered Source : Source Unspecified 20698 - Hib administered Source: Source Unspecified 20033 - Pneumococcal_PCV administered Comfort rce: Source Unspecified 73196 - Polio_OPV_IPV administered Source : Source Unspecified 75833 - Hib administered Source: Source Unspecified 03252 - DTaP_DTP_DT_PEDS administered Comfort rce: Source Unspecified 61944 - Hepatitis_B administered Source: Source Unspecified Payers Payer name Insurance type Covered alliance party ID Authoriza tion(s) CIGNA OPEN ACCESS CI [id number] CIGNA OPEN ACCESS CI [id number] CIGNA OPEN ACCESS CI [id number] CIGNA OPEN ACCESS CI [id number] CIGNA OPEN ACCESS CI [id number] CIGNA OPEN ACCESS CI [id number] CIGNA OPEN ACCESS CI [id number] CIGNA OPEN ACCESS CI [id number] Social History Type Description Quantity Date Captured Comments Alcohol Use Details Unknown Caffeine Use Details Unknown Tobacco Use Status No Information Smoking Status No Information Sex Female Sexual Orientation Lesbian, maldonado or homosexual Gender Identity Additional gender ca tegory or other, please specify (gender fluid) Chief Complaint And Reason For Visit No Information Reason For Referral Reason For Referral No Information Plan Of Treatment Date Type Action Status Referral Referred To: [address] [facility] [address] [place], [phone] Ordered: ULTRASOUND, PELVIC (NONOBSTETRIC), REAL TIME W/ DOCUMENTATION; COMPLETE Appointment date/timeframe: 08/29/2022 ordered Referral Referred To: [address] [facility] [address] [place], [phone] Ordered: XR lumbosacral spine, 2-3 views ordered Referral Ordered: [facility] (related to Problem related to psychosocial circumstances) ordered Referral Referred To: [id number] Ordered: Referrals: Counseling/mental health services. Location: [facility]. 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 Exercise/sports - jogging.SCHOOL: The patient attends [employer] school and grade level is college. Grades earned: A's and B's. anxiety and depression well exam nausea inc latel yworse with inc stress anxiety and depression HPI SUMMA RY: to go to [employer] live in the dormsx are okran out of medshas not taken for 10 daysmeds helpsocial OKgets along wiht dad oksleep okeating no sexual or gender issuesgrades okjob okunable anni 3 weeks ago Went to the [facility] patellar tendonitis not better folowup next week.SCHOOL: The patient attends [employer] and grade level is twelfth grade. Grades earned: A's and B's. acute problem The symptoms beg an 6 months ago and generally lasts 1 Day. The location is Abdomen. Aggravating factors include Menses on day 1, painful. Relieving factors include Rest and ibuprofen for comfort.. Associated symptoms include Denies diarrhea or vomiting. Denies eye or ear complaints. Denies runny nose, cough or congestion. Denies rashes.. The patient states the symptoms are acute. Typically she has pain for her first day of her cycle. This week, she was in class, and she had already taken 800 mg ibuprofen, the pain was really bad and felt like she was going to pass out. Mother of uterine Cancer within 6 weeks of dx. 11 years of age, 05/2018. Her menses typically lasts for 4-5 days. Her period has been regular, they are about 30 days between. The cramping for this was new and the dizziness was also new for patient. She did eat prior to the dizziness. She was able to come home for breakfast that day. Stomach ache is resolved. She used the pepcid for about 3 weeks, it improved within about 1 week. Needs ibuprofen on the first day of the menses, takes 800 mg once to two times dosing per month. acute problem Chief complaint: nausea episodes. nausea for 3 days no fever but felt warm some in the last 2 Camilla 2 days [facility] doing well big weekend socially and work campbell had had sx before the big weekendContext notable for no daycare attendance or ill contact at home/school. acute problem Chief complaint: back pain and anxiety.Symptoms started 3 days ago was doing well so stopped medsnow back on itneeds a refilldoing well with dadfriends goodgrades mostly A's and B's 1 C in an honors class Back pain started Sunday night during practicehas had back [pain in the past and went away within a daythis time different pain and not going awayworse with sitting without support and looking downadvil has not helped took 800 mgpain comes and goes some days only certain positionstrouble sleeping well exam compliance with meds challengingdoing ok but could be doing better acute problem Chief complaint: back pain f/u. exercises helpingpain after works out exercising more lately certain activities bring it out less disabling acute problem Chief complaint: back pain. back pain 6 monthsoff and onno specific activity. ? overusesome days wakes with itno specific time of the daywhen bends it seems worsehip hop dance 7 hours per weekseems to shoot up the spine not terrible painno pain down her legdoes not come when she is dancing worked out last week lunges and squats hurt then no leg sx intensity increasing was every now and then almost daily no change in bowel and bladderno weakness acute problem Chief complaint: cough. congestion started yesterdaysome cough todayHA todaymore tired todayafebrilesome body aches but did do a work out sunday so not sure if related to thatwas at a thespian conference 3 days agovaccinated and boosted end of Dectaking deeper breaths but not short of breathno chest paina little diarrhea--but pt says her normal acute problem Chief complaint: anxiety f/u. well exam wich wich, not s eeing GI anymore hives 3 weeks ago had had in thew past benedryl and Claritin helpedMom dies last year acute problem Chief complaint: rash. has been out of town for the last few days [place] 3a to arms--little spots+itchyseems to come and gonerash flared at 11a--improved with benadrylh/o migrating hives few spots to thighs, abd--responded to benadryllarge coalesced area to abd and some neckno coughno congestionnot feverish, no chillsno v/dno sore throatsleeping in hotel sheetsused a soap 4 days earlier that was newno estelita jones; wearing same costume all year roundeveryone else in the house is doing wellon sertraline daily acute problem Chief complaint: initial depression. wanted comeconsidering seeing a therapist for depressionon zoloftfor anxiety all of the time not living up and had been in a play about suicideanxiety better not anxious all the timesome isues about sadness and depressionepisodic days at a time2 years ago off and on but not as badcould last 1 hour and then finegetting bad for 8-9 monthsnow most of the timesituationalfriends mad at her perceived or realhas been blocked on social mediasometimes says the wrong thing going to school in person for 1 month worse since back at schoolschool worse because act of talking to people and finding way grades not good new unmotivated memories of mom and winter (mom )sleep okdance not effectedhides in her room no crying or wanting to cry+ numbnessapathyannoyed Ryland Saeed not sexually lesbian thinks about being non binary murphy snot like being a womannot stressful or depressingtaking it at her own pace social media no drugs or etohwonders about adhd acute problem Chief complaint: anxiety f/u. anxiety issues betterabd pain betterstill some sadness with mommost nights trouble falling asleep trouble falling asleepcould be up to 2 (some better than in the past )gets up at 8 except on band days easier to sleep when at camp nutrition ok school stress escalatingworried about lack of motivationfriends ok no drugs no etoh some bedtime cyclinglistens to people playing video games acute problem Chief complaint: cold.; are moderate; occur constantly; are fluctuating.; are moderate; occur constantly; are fluctuating. anxiety much bettermuch less timesmed helpsnot thinking about suicide as much so that helpssleep and eatingno stress about being homeschoolwork easierliving up was an issueno negatives to all of this abd pain issues no change but not an issueAllergy sx starting but no wheezetakes zyrtec and Flonase usually worksContext notable for no daycare attendance or ill contact at home/school. well exam anxious all the time since play aobut httfrdl9gxlei agobefore that she was fine some sleep issuessome mpeople uncomfortablesometimes not being good enoughgrades dance sistersocial media not a problem 6-7 hours of sleeppassed out at the eye dr when they touched her eye acute problem Chief complaint: sore throat. Red swollen eye that she woke up with this morning. Sore throat started 5 days ago. No fever. +rhinorrhea/congestion, now improved. Coughing this morning. No vomiting or diarrhea. Taking ibuprofen as needed for knee pain when she exercises. Has not used albuterol. No change in vision. Yellow crusted eye drainage this AM on left. No contacts. 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 If you have any questions or concerns about this information or the services provided today, please call or email us. If vaccines were provided today, please see handout for possible reactions. 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 This can be caused chronically by allergies to many things in the environment like pollens, trees, grasses, dust, mold, and animal dander. - Keep windows closed and shower after playing outside. Consider mattress and pillow covers if you are concerned about year-round allergens. - Claritin, piedad, and zyrtec are available over the counter and can be taken daily during allergy season. Give at bedtime if it causes drowsiness. - If your child was prescribed a nasal steroid (i.e. flonase, nasonex, veramyst) then this should be used daily and your child should rinse their mouth or brush their teeth after use. Please call if causing nosebleeds. - Call the office if you continue to have symptoms despite using the recommended treatments. - For more information please go to [email or web address] l-allergies Related to Seasonal allergic rhinitis due to pollen On patch per Tish Related to Dysmenorrhea in adolescent had therapy improved Related to Pain, joint, knee, left Well Child 12-21 Years Per ortho Related to Pain, joint, knee, left continue zoloft refi ll fu checkup may Related to Anxiety Mother with history of uterinae cancer, within 6 weeks of dx. Related to Maternal family history of cancer Painful menses, with cramping and syncope. Referred to Dr. Yolis Winston after consultation with Dr. Iniguez. 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 Dr. Winston appointment obtained for 09/05 at 1 PM at [facility], ground level at [facility]. Faxed copy of ultrasound sent to Dr. Winston office. Father aware of results of ultrasound and appointment with Dr. Winston. Dr. Iniguez aware of appointment and follow up plans for patient. Urine was negative for HcG at office today. Related to Dysmenorrhea prob stress relatedt ry prevacid 30 mg dailycb inc sx or new sx Related to Dyspepsia doing well now back on meds will continue the restart of meds Related to Anxiety to rest for 1 week c onsider therapy if not betteradvil 800 tid Related to Strain of right trapezius muscle, initial encounter Allergic rhinitis:- Allergic Rhinitis is inflammation of the nasal passages. This can be caused chronically by allergies to many things in the environment like pollens, trees, grasses, dust, mold, and animal dander. - Keep windows closed and shower after playing outside. Consider mattress and pillow covers if you are concerned about year-round allergens. - Claritin, piedad, and zyrtec are available over the counter and can be taken daily during allergy season. Give at bedtime if it causes drowsiness. - If your child was prescribed a nasal steroid (i.e. flonase, nasonex, veramyst) then this should be used daily and your child should rinse their mouth or brush their teeth after use. Please call if causing nosebleeds. - Call the office if you continue to have symptoms despite using the recommended treatments. - For more information please go to [email or web address] l-allergies Related to Seasonal allergic rhinitis due to pollen raretry advil sooner with the onset of the headache Related to Intractable migraine without status migrainosus, unspecified migraine type Needs ot take meds m ore consistentlyNot terribly disablingfu 3 months Related to Anxiety Health maintenance h andout provided. If you have any questions or concerns about this information or the services provided today, please call or email us. If vaccines were provided today, please see handout for possible reactions. Related to Encounter for routine child health examination without abnormal findings improved Related to Irrit able bowel syndrome, unspecified type Well Child 12-21 Years Improvingcontinue labsxray was n ormal Related to Low back pain, unspecified back pain laterality, u likely overuse exerc ises givenwill work on core strength and hamstring flexibilityxray negcb not better Related to Low back pain, unspecified back pain laterality, u Did test for Covid d ue sxs: Covid POSITIVE.Reviewed natural hx. Moving air well. Lungs clear. Cardiac exam reassuring.Notify the office if diff breathing, shortness of breath, excessive fatigue, not taking po well, persistent fever, new sxs or any other concerns. ER warnings reviewed. For those that are Covid-19 positive if there are absolutely NO symptoms 5 full days after the positive test, you can stop isolating yourself at home. After isolation, would recommend testing and if you are negative, you STILL NEED to mask in public for 5 days with a WELL fitted mask- Other option is to isolate x 10 days Guidance for family members and those exposed:For those exposed to someone with Covid-19 Vaccinated within 6 months or received a booster:o wear a mask around others all the time for 10 dayso test 5 days after exposureo if you develop ANY symptoms (like a scratchy throat, tiredness, mild allergies , or head cold) during this time, stay home and get tested Unvaccinated or completed vaccine series more than 6 months from the date of exposure:o quarantine for 5 dayso test 5 days after exposureo after quarantine, you STILL NEED to mask in public for 5 days with a WELL fitted masko If you are needed to work (more for essential workers) you NEED to mask for 10 days with a WELL fitted mask Related to COVID-19 prn albuterol has no t needed for several years Related to Cough variant asthma doing wellconsandhya mims dealing with grievingfu 3 months Related to Anxiety Health maintenance h andout provided. If you have any questions or concerns about this information or the services provided today, please call or email us. If vaccines were provided today, please see handout for possible reactions. Related to Encounter for routine child health examination without abnormal findings Allergic rhinitis:- Allergic Rhinitis is inflammation of the nasal passages. This can be caused chronically by allergies to many things in the environment like pollens, trees, grasses, dust, mold, and animal dander. - Keep windows closed and shower after playing outside. Consider mattress and pillow covers if you are concerned about year-round allergens. - Claritin, piedad, and zyrtec are available over the counter and can be taken daily during allergy season. Give at bedtime if it causes drowsiness. - If your child was prescribed a nasal steroid (i.e. flonase, nasonex, veramyst) then this should be used daily and your child should rinse their mouth or brush their teeth after use. Please call if causing nosebleeds. - Call the office if you continue to have symptoms despite using the recommended treatments. - For more information please go to [email or web address].[email or web address]/contents/marian selbyk-nfzuzhgccap-idtilhge-rhinitis-seasona l-allergies Related to Seasonal allergic rhinitis due to pollen improved Related to Irrit able bowel syndrome, unspecified type Well Child 12-21 Years Exam reassuring and nonfocal. NO focal bacterial nor viral source. -Hives are an itchy raised red rash with pale centers that looks like mosquito bites.-They can result from infections, medications, food but usually the cause is not found.-Take an antihistamine as prescribed (Zyrtec, Claritin or Piedad) until the hives are gone for 48 hours. May use benadryl PRN flare of hives.-Call back if they last > week, are associated with difficulty breathing, or your child acts sick.-If the rash is worsening may consider addition of famotidine. Call if symptoms not controlled with oral antihistamine alone. Related to Other urticaria increased but appear s more of a result of anxietyGrieving clearly and issue Related to Depression, unspecified depression type memories of Mom challenging to h er Related to Problem related to psychosocial circumstances struggling still but zoloft has helped somegoing back to school is a problemdepressed now struggleswill try to get an appt with psychologist cb inc sx or new sx Related to Anxiety improved wiht meds form GI Relat ed to Abdominal pain discussed sleep hygi enedistraction to go to sleeplimit screens prior to bedwork with psychologist on relaxation Related to Sleep stage dysfunction Better with zoloftmay be able to wean Related to Irritable bowel syndrome, unspecified type Allergic rhinitis:- Allergic Rhinitis is inflammation of the nasal passages. This can be caused chronically by allergies to many things in the environment like pollens, trees, grasses, dust, mold, and animal dander. - Keep windows closed and shower after playing outside. Consider mattress and pillow covers if you are concerned about year-round allergens. - Claritin, piedad, and zyrtec are available over the counter and can be taken daily during allergy season. Give at bedtime if it causes drowsiness. - If your child was prescribed a nasal steroid (i.e. flonase, nasonex, veramyst) then this should be used daily and your child should rinse their mouth or brush their teeth after use. Please call if causing nosebleeds. - Call the office if you continue to have symptoms despite using the recommended treatments. - For more information please go to [email or web address].imedo/contents/marian y-ikbbvmdwszt-luqntdut-rhinitis-seasona l-allergies Related to Seasonal allergic rhinitis due to pollen improved Related to Sleep stage dysfunction ImprovedProb combina tion of meds and farther from depressive play she was incontinue wiht present dose Related to Anxiety Allergic rhinitis:- Allergic Rhinitis is inflammation of the nasal passages. This can be caused chronically by allergies to many things in the environment like pollens, trees, grasses, dust, mold, and animal dander. - Keep windows closed and shower after playing outside. Consider mattress and pillow covers if you are concerned about year-round allergens. - Claritin, piedad, and zyrtec are available over the counter and can be taken daily during allergy season. Give at bedtime if it causes drowsiness. - If your child was prescribed a nasal steroid (i.e. flonase, nasonex, veramyst) then this should be used daily and your child should rinse their mouth or brush their teeth after use. Please call if causing nosebleeds. - Call the office if you continue to have symptoms despite using the recommended treatments. - For more information please go to http://www.[employer]Just[employer]/contents/marian g-hllrkyepowl-xnklexfc-rhinitis-seasona l-allergies Related to Seasonal allergic rhinitis due to pollen disablingwill try zo loft We have decided to start a medicine for your addy mental health problems. The medicine is a SSRI( selective serotonin reuptake inhibitor)The medicine typically takes about 3-4 weeks to become fully effective. Possible side effects include nausea, headache, sleep and appetite issues, abdominal pain, all similar to most medicines. It has also been found to cause suicidal thoughts (there are no reports of suicide related to these medicines)If your child has this symptom, please call us right away. Please do not stop the medicine abrupty without telling us.Please call in 1 week with a progress report and make an apptointment for followup in 2 weeks. We will also need to see your child every 3 months while your child is on the medicine. The medicine should be continued for at least 3-6 months. Related to Anxiety rare need for albute rolStatus: Able to self-manage condition. Goals: Your goal is to contact your office resource when needed. Barriers: No barriers to goal achievement have been identified. 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 If you have any questions or concerns about this information or the services provided today, please call or email us. If vaccines were provided today, please see handout for possible reactions. Related to Encounter for routine child health examination with abnormal findings Well Child 12-21 Years see above Related to Unspe cified acute conjunctivitis, unspecified eye Rx polytrim for conj unctivitis. Rapid strep negative. Call back if fever, symptoms continue/worsen, other questions/concerns. Related to Acute upper respiratory infection, unspecified Assessments Type Assessment Date No Information Patient Care Teams Name Effective Dates (start - stop) Status Members No Information
--- OUTSIDE RECORDS SUMMARY | 2024-11-28 17:36 | XMS_ITS | Clinical Summary ---
Author Organization [facility] Address [address] [place] [address] Phone Care Team Providers Care Offal Trimmer Name Role Phone Ryland Iniguez MD Primary Care Provider [phone] Allergies No known active allergies Medications ergocalciferol, vitamin D2, (VITAMIN D ORAL) Take by mouth. Active albuterol HFA 90 mcg inhaler INL 1 PUFF PO Q 4 TO 6 H PRF SOB OR WHZ 04/01/2019 Active bisacodyl (DULCOLAX) 5 mg Delayed Release tablet Take 5 mg by mouth every other day. Active simethicone (GAS-X ORAL) Take by mouth 2 times daily. Active omeprazole (PriLOSEC) 40 mg Capsule, Delayed Release(E.C.)Ind ications:Gastroe sophageal reflux disease, esophagitis presence not specified TAKE 1 CAPSULE(40 MG) BY MOUTH DAILY 30 Capsule 10/17/2019 Active dicyclomine (BENTYL) 10 mg capsuleIndicatio ns:Abdominal pain, unspecified abdominal location TAKE 1 CAPSULE(10 MG) BY MOUTH EVERY 12 HOURS 60 Capsule 2 12/05/2019 Active amitriptyline (ELAVIL) 10 mg tabletIndication s:Abdominal pain, unspecified abdominal location TAKE 1 AND 1/2 TABLETS(15 MG) BY MOUTH DAILY AT BEDTIME 45 Tablet 5 07/12/2020 Active sertraline HCl (SERTRALINE ORAL) Take by mouth. 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 Gender Identity Not on file Sexual Orientation Not on file Last Filed Vital Signs Vital Sign Reading Time Taken Comments Blood Pressure 110/67 03/24/2021 6:45 PM CDT Pulse 101 03/24/2021 6:45 PM CDT Temperature 37.3 C (99.1 F) 03/24/2021 6:45 PM CDT Respiratory Rate 16 03/24/2021 6:45 PM CDT Oxygen Saturation 97% 03/24/2021 6:45 PM CDT Inhaled Oxygen Concentration - - Weight 67.6 kg (149 lb) 03/24/2021 6:45 PM CDT Height 165.4 cm (5' 5.12 ) 03/24/2021 6:45 PM CD T Body Mass Index 24.7 03/24/2021 6:45 PM CDT Body Mass Index Percentile 84.65% 03/24/2021 6:4 5 PM CDT Growth Chart: CDC (Girls, 2- 20 Years) Plan of Treatment Health Maintenance Due Date Last Done Comments PNEUMOCOCCAL VACCINE 0-64 YEARS (1 of 2 - PCV) 011 CHLAMYDIA SCREENING (ANNUAL) 11-24 YEARS 12/25/2015 HPV VACCINES (2 - 3-dose series) 01/29/2020 01/01/20 20 DTAP/TDAP/TD VACCINES (1 - Tdap) 12/25/2023 HEPATITIS B VACCINES (1 of 3 - 19+ 3-dose series) 02/2024 INFLUENZA VACCINE (#1) 2024 Insurance CIG OPEN ACCESS HMO [facility] [place] [address] [place] [id number] CIG OA O POS NETWORK Advance Directives For more information, please contact: [phone] * Full Code (Latest Code Status on File) Date Activated Date Inactivated Comments 01/02/2018 8:30 AM 01/02/2018 2:16 PM * Full Code Date Activated Date Inactivated Comments 08/15/2017 7:57 AM 08/15/2017 12:39 PM Care Teams Offal Trimmer Relationship Specialty Start Date End Date Ryland Iniguez MD PCP - General Pediatrics 04/01/12
--- OUTSIDE RECORDS SUMMARY | 2024-11-28 17:36 | XMS_ITS | Referral Summary ---
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
[2024-11-28 18:32] VITALS: BP 130/70; PULSE 78; RESP 18; TEMP 36.6; O2SAT 98
== END 2024-11-28 18:33 | disposition home or self-care (01) ==
PROVIDERS: Emergency Provider Physician Assistant
DX: S09.90XA Unspecified injury of head, initial encounter (principal); W19.XXXA Unspecified fall, initial encounter
CPT/HCPCS: 70450; 99284

== ENCOUNTER 2025-01-24 02:36 | Emergency (ER) | payer OTHER, SELFPAY ==
--- NOTE | ~2025-01-24 | CT_ITS ---
EXAMINATION: CT abdomen pelvis w con DATE: 01/24/2025 07:05 INDICATION: Gastrointestinal bleed. Hematochezia. TECHNIQUE: Computed tomography (CT) of the abdomen and pelvis was performed with 100 mL Omnipaque-350 intravenous contrast. Automated exposure control and iterative reconstruction technique were employe d. The dose-length product was 612.70 mGy-cm. COMPARISON: None FINDINGS: Lung bases are clear. Heart size is normal. No pericardial or pleural effusion. Liver, gallbladder, s pleen, pancreas, bilateral adrenal glands and kidneys are normal. Bowels are normal. The appendix is not visualized. No pericecal inflammatory change to suggest acute appendicitis. Bladder, anteverted u terus and bilateral adnexa are unremarkable. Trace amount of likely physiologic free fluid in the pel vis. No abscess or free intraperitoneal gas. No pathologically enlarged abdominal or pelvic lymphaden opathy. Schmorl's node along the superior endplate of L2 and L3 limbus vertebra. IMPRESSION: 1. No acute intra-abdominal/pelvic process. Reviewed, dictated and finalized at location A.
--- OUTSIDE RECORDS SUMMARY | 2025-01-24 02:38 | XMS_ITS | Clinical Summary ---
Author Organization [facility] Address [address] [place] [address] Care Team Providers Care Sheet Metal Worker Supervisor Name Role Phone Ryland Iniguez MD Primary Care Provider [phone] Source Comments [facility],non-owned Affiliates and Associated Physician Practices is amultiple site organization consisting of ambulatory clinics and hospital sitesin [place], [place], [place] and [place]. This disclosure is being madepursuant to the Care Everywhere program and may not contain all information available regarding this patient. Last updated 18.[facility] Allergies No known active allergies Medications * [...] Mass Index 20.98 05/15/2019 11:00 AM CDT Plan of Treatment Health Maintenance Due Date Last Done Comments HIV SCREENING 12/25/2019 HPV VACCINE (1 - 3-dose series) 12/25/2019 CHLAMYDIA/GONORRHEA SCREENING 2020 MENINGOCOCCAL (Group B) VACC INE SHARED DECISION-MAKING (1 of 2 - Standard) 2020 HEPATITIS C SCREENING 12/20/2022 DTAP/TDAP/TD VACCINES (1 - Tdap) 12/25/2023 HEPATITIS B VACCINE (1 of 3 - 19+ 3-dose series) 12/25/2023 COVID-19 VACCINE (1 - 2023-2 5 season) 2024 INFLUENZA VACCINE (#1) 2024 DEPRESSION SCREENING 10/22/2024 ZOSTER VACCINE (1 of 2) 2054 HIB VACCINE Aged Out No longer eligi ble based on patient's age to complete this topic MENINGOCOCCAL GROUPS A/C/Y/W VACCINE Aged Out No longer eligible b ased on patient's age to complete this topic PNEUMOCOCCAL VACCINE Aged Out No long er eligible based on patient's age to complete this topic Care Teams Sheet Metal Worker Supervisor Relationship Specialty [place] [address] [facility] [place] [address] PCP - General Pediatrics 05/15/19
--- OUTSIDE RECORDS SUMMARY | 2025-01-24 02:38 | XMS_ITS | Patient Health Record ---
Author Organization [facility] Address [address] [place] [address] [place] [address] Care Team Providers Care Stock Crane Operator Name Role Phone SalomónRyland vaughan Primary Care Provider Unavaila patel Lara MD, Magdaleno Unavailable [phone] ALLERGIES No Known Allergies REASON FOR REFERRAL [...] tendinitis, right knee (M76.51) 01/22/2023 Active confirmed [id number] PLAN OF TREATMENT No Information Insurance Providers Payer Name Payer Address Payer Phone Subscriber Number Group Number Insured Name Patient Relationship to Insured Coverage Start Date Coverage End Date Cigna [address] BRENDA CINTRON, JACKELYN [phone] [id number] Sp Askew [facility] Child - Insured has Financial Responsibility MEDICAL (GENERAL) HISTORY Medical History History ICD Code depression asthma Surgical History Surgery Date(Month/Year)
--- OUTSIDE RECORDS SUMMARY | 2025-01-24 02:38 | XMS_ITS | Continuity of Care Document ---
Author Organization [facility] Address [address] [place] [address] Phone Care Team Providers Care Printed Circuit Designer Name Role Phone Heather COOK, Jyoti Unavailable [...] Diagnoses Date Provider Providers Copied on Encounter [facility], [address], [facility], [phone] [facility] No Information 6 Heather Montes. [address] [facility], [facility] [address], [place], [id number] . tel: [phone] [facility], [address] [facility] [address], [place], [facility], tel:[phone] [facility] Medial tibial stress syndrome, right, initial encounterMedial tibial stress syndrome, left, initial encounter 6 Heather Montes. [address] [facility], [facility] [address], [place], [id number] . tel: [phone] Family History Family Member Type Diagnosis Age At Onset No Information Payers Payer name Insurance type Covered democrat ID Authoriza tion(s) No Information Social History [...]
[2025-01-24 02:39] VITALS: BP 119/75; PULSE 84; RESP 14; TEMP 36.8; O2SAT 100
--- OUTSIDE RECORDS SUMMARY | 2025-01-24 02:39 | XMS_ITS | Continuity of Care Document ---
Author Organization [employer] Address [address] [place] [address] Phone Care Team Providers Care Strike On Machine Operator Name Role Phone Ryland Iniguez MD Unavailable [...] ssessment, With Scoring/Doct, Per St[employer] Instrument OFFICE [id number]-RRS-[id number] BODY MASS INDEX DOCD SYST BP LT [...] ssessment, With Scoring/Doct, Per [employer] Instrument OFFICE FWAEH-URJ-TEDLQKES BODY MASS INDEX DOCD SYST BP LT 130 MM HG DIAST BP < 80 MM HG OFFICE ARJGK-LXR-OLOYOBLK TEST, HCG, QL (U) ESSE 2021 OFFICE SVJFJ-BSE-UFQVMOJC OFFICE KHLJI-ZFA-ZBMDPDNH Brief Emotional/Behavioral A ssessment, With Scoring/Doct, Per [...] (Bexsero) Meningococcal Recombinant, Pro tein/Outer Membrane OFFICE IRQMM-ASZ-JRFHVMBT OFFICE EMCZU-UYY-HSXDDDTV OFFICE JDPAS-KGS-CQPQGVTJ COVID-19, Amplified Probe Technique Brief Emotional/Behavioral A ssessment, With Scoring/Doct, Per St[facility] Instrument Clin depression screen doc Brief Emotional/Behavioral A ssessment, With Scoring/Doct, Per [employer] Instrument HPV IM Types 6, 11, 16, 18, 31, 33, 45, 58 NONVALENT 9vHPV 3 DOSE SCHED IMADM ANY ROUTE 1ST VAC/TOX MENACTRA MENINGOCOCCAL CONJUGATE, QUAD, VACCINE PREVENTATIVE-EST: - OFFICE ZNWON-MQF-UCEPKRMS BODY MASS INDEX DOCD OFFICE GJCEM-QIA-DZNWYAUK Brief Emotional/Behavioral A ssessment, With Scoring/Doct, Per Stndrd Instrument Clin depression screen doc Brief Emotional/Behavioral A ssessment, With Scoring/Doct, Per Stnd[employer] Instrument OFFICE MULBP-ZXA-EZXOTYXJ BODY MASS INDEX DOCD Brief Emotional/Behavioral A ssessment, With Scoring/Doct, Per Stndrd Instrument Brief Emotional/Behavioral A ssessment, With Scoring/Doct, Per Stndrd Instrument Pt inelig neg scrn depres OFFICE NLNXR-UFC-YZQJOCLH BODY MASS INDEX DOCD Brief Emotional/Behavioral A ssessment, With Scoring/Doct, Per Stndrd Instrument Clin depression screen doc Brief Emotional/Behavioral A ssessment, With Scoring/Doct, Per Stnd[employer] Instrument OFFICE KUNHP-SKK-XEQIEQHX Brief Emotional/Behavioral A ssessment, With Scoring/Doct, Per Stndrd Instrument Clin depression screen doc Brief Emotional/Behavioral A ssessment, With Scoring/Doct, Per Stndrd Instrument IMADM ANY ROUTE 1ST VAC/TOX HPV IM Types 6, 11, 16, 18, 31, 33, 45, 58 NONVALENT 9vHPV 3 DOSE SCHED PREVENTATIVE-EST: 10-07 BODY MASS INDEX DOCD OFFICE GMGFU-TLO-WFSNKCVD RAPID STREP A CULTURE, PRESUMPATIVE, SCREENING ONLY [...] Diagnoses Date Provider Providers Copied on Encounter [employer], [address], [place], [place], [address] , tel: [phone] [facility] No Information 4 Hira Marcelino. [address] [address], [place], [place], [address], [place]. tel:[phone] [employer], [address], [place], [place], [address] , tel: [phone] [facility] No Information 4 Hira Marcelino. [address] [facility] [address], [place], [place], [address], [place]. tel:[phone] OFFICE TDRAB-BUZ-AZ PANDED [employer], [address], [place], [place], [address] , [place] tel:[phone] [facility] anxiety and depression (chief complaint) Anxiety 4 Hira Marcelino. [address] [place] [address], [address], [place], [place], [address], [place]. tel:[phone] Referring Provider: Ryland Iniguez , [address] [place] [address] [address], [place], [address] . tel:[phone] PREVENTATIVE -EST: 18-39 [facility], [address], [place], [place], [address] , [place] tel:[phone] [facility] well exam (chief complaint)a nxiety and depression (chief complaint) Encounter for routine child health examination without abnormal findingsAnxietyP ain, joint, knee, leftDysmenorrhea in adolescentDyspep siaDepression, unspecified depression typeSeasonal allergic rhinitis due to pollenMaternal family history of cancerIrritable bowel syndrome, unspecified typeGender dysphoria of adolescence 3 Hira Marcelino. [address] [place] [address], [address], [place], [place], [address], [place]. tel:[phone] Referring Provider: Ryland Iniguez , [address] [place] [address] [address], [place], [address] . tel:[phone] OFFICE DMCIW-WQG-NV [facility], [address], [place], [place], [address] , [place] tel:[phone] [facility] anxiety and depression (chief complaint) AnxietyPain, joint, knee, left 3 Hira Marcelino. [address] [place] [address], [address], [place], [place], [address], [place]. tel:[phone] Referring Provider: Ryland Iniguez , [address] [place] [address] [address], [place], [address] . tel:[phone] OFFICE KLRFD-XNY-VU TAILED [facility], [address], [place], [place], [address] , [place] tel: [phone] [facility] acute problem (chief complaint) DysmenorrheaMate rnal family history of cancer 2 Freddie Mendoza. [address] [facility], [place], [place], [address], [place]. tel:[phone] Referring Provider: Ryland Iniguez , [address] [place] [address] [address], [place], [address] . tel:[phone] OFFICE KTHUM-TFM-NE [facility], [address], [place], [place], [address] , [place] tel: [phone] [facility] acute problem (chief complaint) Dyspepsia 2 Hira Marcelino. [address] [place] [address], [address], [place], [place], [address], [place]. tel:[phone] Referring Provider: Ryland Iniguez , [address] [place] [address] [address], [place], [address] . tel:[phone] OFFICE YTLVX-MRU-JT [facility], [address], [place], [place], [address] , [place] tel:[phone] [facility] acute problem (chief complaint) Depression, unspecified depression typeAnxietyStrai n of right trapezius muscle, initial encounter 2 Hira Marcelino. [address] [place] [address], [address], [place], [place], [address], [place]. tel:[phone] Referring Provider: Ryland Iniguez , [address] [place] [address] [address], [place], [address] . tel:[phone] PREVENTATIVE -EST: 1217 [facility], [address], [place], [place], [address] , [place] tel: [phone] [facility] well exam (chief complaint) Encounter for routine child health examination without abnormal findingsIrritabl e bowel syndrome, unspecified typeAnxietySeaso nal allergic rhinitis due to pollenDepression , unspecified depression typeIntractable migraine without status migrainosus, unspecified migraine type 2 Hira Marcelino. [address] [place] [address], [address], [facility], [place], [address], [place]. tel:[phone] Referring Provider: Ryland Iniguez , [address] [place] [address] [address], [place], [address] . tel:[phone] [facility], [address], [place], [place], [address] , [place] tel:[phone] [facility] No Information Mar- 2 Hira Marcelino. [address] [place] [address], [address], [facility], [place], [address], [place]. tel:[phone] Referring Provider: Ryland Iniguez , [address] [place] [address] [address], [place], [address] . tel:[phone] OFFICE XOQGK-RCP-LM [facility], [address], [place], [place], [address] , [place] tel:[phone] [facility] acute problem (chief complaint) Low back pain, unspecified back pain laterality, u 2 Hira Marcelino. [address] [place] [address], [address], [place], [place], [address], [place]. tel:[phone] Referring Provider: Ryland Iniguez , [address] [place] [address] [address], [place], [address] . tel:[phone] OFFICE QPLHN-SCV-IP [facility], [address], [place], [place], [address] , [place] tel:[phone] [facility] acute problem (chief complaint) Low back pain, unspecified back pain laterality, u 2 Hira Marcelino. [address] [place] [address], [address], [facility], [place], [address], [place]. tel:[phone] Referring Provider: Ryland Iniguez , [address] [place] [address] [address], [place], [address] . tel:[phone] OFFICE AXTAJ-JGB-HM [employer], [address], [place], [place], [address] , [place] tel:[phone] [facility] acute problem (chief complaint) COVID-19 2 Ianbraden Marin. [address] [facility], [address], [place], [address], [place]. tel:[phone] Referring Provider: Ryland Iniguez , [address] [place] [address] [address], [place], [address] . tel:[phone] [employer], [address], [place], [place], [address] , [place] tel:[phone] [facility] No Information 1 Hira Marcelino. [address] [place] [address], [address], [place], [place], [address], [place]. tel:[phone] PREVENTATIVE -EST: 10-07 [employer], [address], [place], [place], [address] , tel: [phone] [facility] well exam (chief complaint)a cute problem (chief complaint) Encounter for routine child health examination without abnormal findingsSeasonal allergic rhinitis due to pollenIrritable bowel syndrome, unspecified typeAnxietyCough variant asthma 1 Hira Marcelino. [address] [place] [address], [address], [place], [place], [address], [place]. tel:[phone] Referring Provider: Ryland Iniguez , [address] [place] [address] [address], [place], [address] . tel:[phone] OFFICE OBPED-HXV-DG [employer], [address], [place], [place], [address] , [place] tel:[phone] [facility] acute problem (chief complaint) Other urticaria 1 Kimo Marin. [address] [facility], [address], [place], [address], [place]. tel:[phone] Referring Provider: Ryland Iniguez , [address] [place] [address] [address], [place], [address] . tel:[phone] [facility], [address], [place], [place], [address] , tel: [phone] Care Management Problem related to psychosocial circumstancesAnx ietyDepression, unspecified depression type 1 Hira Marcelino. [address] [place] [address], [address], [place], [place], [address], [place]. tel:[phone] OFFICE MUHTV-KGJ-UY [facility], [address], [place], [place], [address] , tel: [phone] [facility] acute problem (chief complaint) AnxietyAbdominal painDepression, unspecified depression typeProblem related to psychosocial circumstances 1 Hira Marcelino. [address] [place] [address], [address], [place], [place], [address], [place]. tel:[phone] Referring Provider: Ryland Iniguez , [address] [place] [address] [address], [place], [address] . tel:[phone] OFFICE CWFGS-POY-KR [facility], [address], [place], [place], [address] , tel:[phone] [facility] acute problem (chief complaint) AnxietySleep stage dysfunction Sep-0 2- 0 Hira Marcelino. [address] [place] [address], [address], [place], [place], [address], [place]. tel:[phone] Referring Provider: Ryland Iniguez , [address] [place] [address] [address], [place], [address] . tel:[phone] OFFICE QNTOW-JXQ-IS [facility], [address], [place], [place], [address] , tel:[phone] [facility] acute problem (chief complaint) AnxietySeasonal allergic rhinitis due to pollenSleep stage dysfunctionIrrit able bowel syndrome, unspecified type Apr-0 1-202 0 Hira Marcelino. [address] [place] [address], [address], [place], [place], [address], [place]. tel:[phone] Referring Provider: Ryland Iniguez , [address] [place] [address], [place], [address] . tel:[phone] PREVENTATIVE -EST: 12 [facility], [address], [place], [place], [address] , [place] tel: [phone] [facility] well exam (chief complaint) AnxietyAllergic rhinoconjunctivi tisSeasonal allergic rhinitis due to pollenProblem related to psychosocial circumstancesCou gh variant asthmaSleep stage dysfunctionDisor derMigraine without aura and without status migrainosus, not intractableEncou nter for routine child health examination with abnormal findingsAbdomina l pain 0 Hira Marcelino. [address] [place] [address], [address] [address], [place], [place], [address], [place]. tel:[phone] Referring Provider: Ryland Iniguez , [address] [place] [address], [place], [address] . tel:[phone] OFFICE WCYTR-PLV-XD PANDED [facility], [address], [place], [place], [address] , [place] tel:[phone] [facility] acute problem (chief complaint) Acute upper respiratory infection, unspecifiedUnspe cified acute conjunctivitis, unspecified eye Sep-201 9 Dario Neal. [address] [place] [address], [address], [place], [place], [address], [place]. tel:[phone] Referring Provider: Ryland Iniguez , [address] [place] [address] [address] [facility], [place], [address] . tel:[phone] [facility], [address], [place], [place], [address] , tel:[phone] [facility] CoughMild intermittent asthma with acute exacerbationSuba cute sinusitis, unspecified location Jan-201 9 Hira Marcelino. [address] [place] [address], [address], [place], [place], [address], . tel:[phone] Referring Provider: Ryland Iniguez , [address] [place] [address] [address], [place], [address] . tel:[phone] [employer] [facility], [address], [place], [place], [address] , tel:[phone] [facility] Diarrhea, unspecified type Feb-0 9 Hira Marcelino. [address] [place] [address], [address], [place], [place], [address], [place]. tel:[phone] Referring Provider: Ryland Iniguez , [address] [place] [address] [address], [place], [address] . tel:[phone] [employer], [address], [place], [place], [address] , tel:[phone] [facility] Cough variant asthmaAcute upper respiratory infection, unspecified 8 Hira Marcelino. [address] [place] [address], [address], [place], [place], [address], [place]. tel:[phone] Referring Provider: Ryland Iniguez , [address] [place] [address] [address], [place], [address] . tel:[phone] [employer], [address], [place], [place], [address] , tel:[phone] [facility] CoughCough variant asthma 8 Dionte Dixon. [address] [place] [address], [address], [place], [place], [address], [place]. tel:[phone] Referring Provider: Ryland Iniguez , [address] [place] [address] [address], [place], [address] . tel:[phone] [facility], [address], [place], [place], [address] , tel:[phone] [facility] Cough variant asthma 3 0 7 Hira Marcelino. [address] [place] [address], [address], [place], [place], [address], [place]. tel:[phone] Referring Provider: Ryland Iniguez , [address] [place] [address] [address], [place], [address] . tel:[phone] [facility], [address], [place], [place], [address] , [place] tel:[phone] [facility] Abdominal pain 7 Trenton Cleveland. [address] [place] [address], [address], [place], [place], [address], [place]. tel:[phone] Referring Provider: Ryland Iniguez , [address] [place] [address] [address], [place], [address] . tel:[phone] [facility], [address], [place], [place], [address] , [place] tel: [phone] [facility] Abdominal pain 7 Hira Marcelino. [address] [place] [address], [address], [place], [place], [address], [place]. tel:[phone] Referring Provider: Ryland Iniguez , [address] [place] [address] [address], [place], [address] . tel:[phone] [facility], [address], [place], [place], [address] , [place] tel:[phone] [facility] Encounter for routine child health examination without abnormal findingsAllergic rhinitis, unspecifiedMild persistent asthma without complicationAbdo ramon painSleep stage dysfunction 7 Hira Marcelino. [address] [place] [address], [address], [place], [place], [address], [place]. tel:[phone] Referring Provider: Ryland Iniguez , [address] [place] [address] [address], [place], [address] . tel:[phone] [facility], [address], [place], [place], [address] , tel:[phone] [facility] Abdominal pain 7 Hira Marcelino. [address] [place] [address], [address], [facility], [place], [address], [place]. tel:[phone] Referring Provider: Ryland Iniguez , [address] [place] [address] [address], [place], [address] . tel:[phone] [facility], [address], [place], [place], [address] , [place] tel:[phone] [facility] Pain of lower extremity, unspecified laterality Apr- 8 6 Hira Marcelino. [address] [place] [address], [address], [facility], [place], [address], [place]. tel:[phone] Referring Provider: Ryland Iniguez , [address] [place] [address] [address], [place], [address] . tel:[phone] [facility], [address], [place], [place], [address] , [place] tel: [phone] [facility] Abdominal painAllergic rhinitis, unspecifiedConst ipation, unspecified constipation type Dec- 6201 6 Kimo Marin. [address] [place] [address], [address], [place], [place], [address], [place]. tel:[phone] Referring Provider: Ryland Iniguez , [address] [place] [address] [address], [place], [address] . tel:[phone] [facility], [address], [place], [place], [address] , [place] tel:[phone] [facility] Acute pharyngitis, unspecified Dec- 5 Hira Marcelino. [address] [place] [address], [address], [facility], [place], [address], [place]. tel:[phone] Referring Provider: Ryland Iniguez , [address] [place] [address] [address], [place], [address] . tel:[phone] [facility], [address], [place], [place], [address] , [place] tel: [phone] [facility] Convulsive syncopeOther convulsionsViral illness Sep- 5 Hira Marcelino. [address] [facility], [address], [place], [place], [address], [place]. tel:[phone] Referring Provider: Ryland Iniguez , [address] [place] [address] [address], [place], [address] . tel:[phone] [facility], [address], [place], [place], [address] , tel:[phone] [facility] 1mo-18 year well child checkALLERGIC RHINITIS NOSAllergic rhinoconjunctivi tis 5 Hira Marcelino. [address] [place] [address], [address], [place], [place], [address], [place]. tel:[phone] Referring Provider: Ryland Iniguez , [address] [place] [address] [address], [place], [address] . tel:[phone] [facility], [address], [place], [place], [address] , tel:[phone] [facility] Viral illness Jan- 5 Hira Marcelino. [address] [place] [address], [address], [place], [place], [address], [place]. tel:[phone] Referring Provider: Ryland Iniguez , [address] [place] [address] [address], [place], [address] . tel:[phone] [facility], [address], [place], [place], [address] , [place] tel:[phone] [facility] URI 5 Kleber Yu. [address] [facility], [address], [place], [place], [address], [place]. tel:[phone] Referring Provider: Ryland Iniguez , [address] [place] [address] [address], [place], [address] . tel:[phone] [facility], [address], [place], [place], [address] , tel:[phone] [facility] Wrist sprain 4 Hira Marcelino. [address] [place] [address], [address], [place], [place], [address], . tel:[phone] Referring Provider: Ryland Iniguez , [address] [place] [address] [address], [place], [address] . tel:[phone] [facility], [address], [place], [place], [address] , tel:[phone] [facility] Allergic rhinoconjunctivi tis 4 Evan Alstona. [address] [place] [address], [address], [place], [place], [address], [place]. tel:[phone] Referring Provider: Ryland Iniguez , [address] [place] [address] [address], [place], [address] . tel:[phone] [facility], [address], [place], [place], [address] , tel:[phone] [facility] Streptococcal sore throat 3 Marichuy Sexton. [address] [place] [address], [address], [place], [place], [address], [place]. [phone] Referring Provider: Ryland Iniguez , [address] [place] [address] [address], [place], [address] . tel:[phone] [facility], [address], [place], [place], [address] , tel:[phone] [facility] History of strep sore throat 3 Marichuy Sexton. [address] [place] [address], [address], [place], [place], [address], . [phone] Referring Provider: Ryland Iniguez , [address] [place] [address] [address], [place], [address] . tel:[phone] [facility], [address], [place], [place], [address] , [place] tel: [phone] [facility] Strep pharyngitis 3 Ianbraden Marin. [address] [facility], [address], [facility], [address], [place]. [phone] Referring Provider: Taniazion Malin, [address] [facility] [address], [facility] [place], [address] . tel:[phone] [facility], [address], [place], [place], [address] , tel: [phone] [facility] Skin laceration 3 Hira Marcelino. [address] [facility], [address], [place], [place], [address], [place]. [phone] Referring Provider: Ryland Iniguez , [address] [place] [address] [address], [place], [address] . tel:[phone] [facility], [address], [place], [place], [address] , [place] tel:[phone] [facility] Abdominal pain, unspecified siteCoughUrticar ia 3 Dkdonny Acosta. [address] [facility], [address], [place], [place], [address]. tel:[phone] Referring Provider: Ayo Fischer, [address] [facility] [address], [place], [address]. tel:[phone] [facility], [address], [place], [place], [address] , tel:[phone] [facility] Acute upper respiratory infections of unspecified site 3 Marichuy Sexton. [address] [facility], [address], [facility], [address], [place]. tel:[phone] Referring Provider: Ryland Iniguez , [address] [place] [address] [address], [place], [address] . tel:[phone] [facility], [address], [place], [place], [address] , [place] tel: [phone] [facility] Abdominal pain, generalizedIBS (irritable bowel syndrome) 2 Hira Marcelino. [address] [facility], [address], [place], [place], [address], [place]. tel:[phone] Referring Provider: Ryland Iniguez , [address] [place] [address] [address], [place], [address] . tel:[phone] [facility], [address], [place], [place], [address] , [place] tel: [phone] [facility] CoughAcute pharyngitis 2 Evan Esposito. [address] [place] [address], [address], [place], [place], [address], [place]. tel:[phone] Referring Provider: Ryland Iniguez , [address] [place] [address] [address], [place], [address] . tel:[phone] [facility], [address] [address], [place], [place], [address] , [place] tel: [phone] [facility] Other specified viral wartsViral warts, unspecified 1 Hira Marcelino. [address] [place] [address], [address], [place], [place], [address], [place]. tel:[phone] Referring Provider: Ryland Iniguez , [address] [place] [address] [address], [place], [address] . tel:[phone] [facility], [address], [place], [place], [address] , [place] tel: [phone] [facility] Acute upper respiratory infections of unspecified site 1 Marichuy Sexton. [address] [place] [address], [address], [place], [place], [address], [place]. tel:[phone] Referring Provider: Ryland Iniguez , [address] [place] [address] [address], [place], [address] . tel:[phone] [employer], [address], [place], [place], [address] , tel: [phone] [facility] Abdominal pain, generalized Sep-0 -201 1 Hira Marcelino. [address] [facility], [address], [place], [place], [address], [place]. [phone] Referring Provider: Ryland Iniguez , [address] [place] [address] [address], [place], [address] . tel:[phone] [employer], [address], [place], [place], [address] , tel: [phone] [facility] Routine infant or child health checkEXTRINSIC ASTHMA, UNSPECIFIEDRouti ne or child health check Morgan-2 1 Hira Marcelino. [address] [place] [address], [address], [place], [place], [address], . tel:[phone] Referring Provider: Ryland Iniguez , [address] [place] [address] [address], [place], [address] . tel:[phone] [employer], [address], [place], [place], [address] , tel: [phone] [facility] EXTRINSIC ASTHMA NOS Oct-2 7-200 9 Hira Marcelino. [address] [place] [address], [address], [place], [place], [address], [place]. tel:[phone] [employer], [address], [place], [place], [address] , tel: [phone] [facility] ALLERGIC RHINITIS NOS Oct-2 7-200 7 Hira Marcelino. [address] [place] [address], [address], [place], [place], [address], [place]. tel:[phone] [employer], [address], [place], [place], [address] , tel: [phone] [facility] PNEUMONIA, ORGANISM NOS Nov-0 6-200 6 Hira Marcelino. [address] [facility], [address], [place], [place], [address], [place]. tel:[phone] [facility], [address], [place], [place], [address] , [place] tel: [phone] [facility] ESOPHAGEAL REFLUX 0 5-200 5 Hira Ryland. [address] [facility], [address], [place], [place], [address], [place]. tel:[phone] Family History Family Member Type Diagnosis Age [...] doses, administered 21 days apart administered Note: [facility] ; Comfort rce: Other Provider HPV (9-valent) administered Source: New I mmunization Record meningococcal MCV4P administered Source: New Immunization Record Pfizer-BioNTech COVID19 Vaccine, 0.3mL per dose, 2 doses, administered 21 days apart administered Note: entered via [employer] card - [place] ; Source: Other Provider Pfizer-BioNTech COVID19 Vaccine, 0.3mL per dose, 2 doses, administered 21 days apart administered Note: entered via [employer] card - [place] ; Source: Other Provider [...] or older) administered Source: New Immunization Record 29134 - DTaP_DTP_DT_PEDS administered Comfort rce: Source Unspecified 38861 - Polio_OPV_IPV administered Source : Source Unspecified 57852 - MMR administered Source: Source Unspecified 93550 - Varicella administered Source: So urce Unspecified 71302 - Influenza administered Source: So urce Unspecified 11777 - Pneumococcal_PCV administered Comfort rce: Source Unspecified 40758 - DTaP_DTP_DT_PEDS, Hib administere d Source: Source Unspecified 15644 - Varicella administered Source: So urce Unspecified 60396 - MMR administered Source: Source Unspecified 80656 - Influenza administered Source: So urce Unspecified 17655 - Influenza administered Source: So urce Unspecified 60585 - Hepatitis_B administered Source: Source Unspecified 84700 - Polio_OPV_IPV administered Source : Source Unspecified 49106 - Hib administered Source: Source Unspecified 56827 - Pneumococcal_PCV administered Comfort rce: Source Unspecified 90239 - DTaP_DTP_DT_PEDS administered Comfort rce: Source Unspecified 72524 - Hepatitis_B administered Source: Source Unspecified 05466 - DTaP_DTP_DT_PEDS administered Comfort rce: Source Unspecified 21064 - Pneumococcal_PCV administered Comfort rce: Source Unspecified 42662 - Polio_OPV_IPV administered Source : Source Unspecified 14026 - Hib administered Source: Source Unspecified 55539 - Pneumococcal_PCV administered Comfort rce: Source Unspecified 80889 - Polio_OPV_IPV administered Source : Source Unspecified 26373 - Hib administered Source: Source Unspecified 91831 - DTaP_DTP_DT_PEDS administered Comfort rce: Source Unspecified 48540 - Hepatitis_B administered Source: Source Unspecified Payers Payer name Insurance type Covered green party ID Authoriza tion(s) CIGNA OPEN ACCESS CI [id number] CIGNA OPEN ACCESS CI [id number] CIGNA OPEN ACCESS CI [id number] CIGNA OPEN ACCESS CI [id number] CIGNA OPEN ACCESS CI [id number] CIGNA OPEN ACCESS CI [id number] CIGNA OPEN ACCESS CI [id number] CIGNA OPEN ACCESS CI [id number] Social History Type Description Quantity Date Captured [...] Date Type Action Status Referral Referred To: [address] [facility] [address] [place], [phone] Ordered: ULTRASOUND, PELVIC (NONOBSTETRIC), REAL TIME W/ DOCUMENTATION; COMPLETE Appointment date/timeframe: 08/29/2022 ordered Referral Referred To: [address] [facility] [address] [place], [phone] Ordered: XR lumbosacral spine, 2-3 views ordered Referral Ordered: [facility] (related to Problem related to psychosocial circumstances) ordered Referral Referred To: [id number] Ordered: Referrals: Counseling/mental health services. Location: [facility]. 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 Exercise/sports - jogging.SCHOOL: The patient attends [employer] and grade level is college. Grades earned: A's and B's. anxiety and depression well exam nausea inc latel yworse with inc stress anxiety and depression HPI SUMMA RY: to go to [employer] live in the dormsx are okran out of medshas not taken for 10 daysmeds helpsocial OKgets along wiht dad oksleep okeating no sexual or gender issuesgrades okjob okunable anni 3 weeks ago Went to the [facility] patellar tendonitis not better folowup next week.SCHOOL: The patient attends [employer] and grade level is twelfth grade. Grades [...] few [place] 3[place] to arms--little spots+itchyseems [...] anxious all the time since play aobut sdkczor0tkfwx agobefore that she was fine some sleep [...] No Information Instructions Date Instruction Additional Infor baldev doing well continue meds Related to Anxiety stableto restart zoloft Related to Depression, unspecified depression type will restart Nexium Related to D yspepsia quiescent Related to Irrit able bowel syndrome, unspecified type ogbg3awwqsfwsg been off medswill restart Related to Anxiety [...] - For more information please go to http://www.[place]/contents/marian selbyq-qazlnfqnctr-gabkngxn-rhinitis-seasona l-allergies Related to Seasonal allergic rhinitis due [...] obtained for 09/05 at 1 PM at [facility], ground level at [facility]. Faxed copy of ultrasound sent to Dr. Winston office. Father aware of results of ultrasound and appointment with Dr. Winston. Dr. Iinguez aware of appointment and follow up plans [...] - For more information please go to http://www.[employer]com/contents/marian selbyw-koawnpuyifp-fyfyqhnb-rhinitis-seasona l-allergies Related to Seasonal allergic rhinitis due [...] Related to Cough variant asthma doing wellconsandhya fischer edsstvandana dealing with grievingfu 3 months Related to Anxiety improved Related to Irrit able bowel syndrome, unspecified type Health maintenance h andout provided. If you [...] - For more information please go to http://www.[place].[employer]/contents/marian selbyy-wgjtxrvawzr-jhyvquuu-rhinitis-seasona l-allergies Related to Seasonal allergic rhinitis due to pollen Well Child 12-21 Years Exam reassuring and [...] - For more information please go to http://www.[employer]/contents/marian k-sunivliuwkn-etobdabo-rhinitis-seasona l-allergies Related to Seasonal allergic rhinitis due [...] - For more information please go to http://www.[place].[employer]/contents/marian m-zdusznlqmte-huwtrjpz-rhinitis-seasona l-allergies Related to Seasonal allergic rhinitis due [...]
--- OUTSIDE RECORDS SUMMARY | 2025-01-24 02:39 | XMS_ITS | Clinical Summary ---
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 Gender Identity Not on file Sexual Orientation [...] Mass Index 24.7 03/24/2021 6:45 PM CDT Plan of Treatment Health Maintenance Due Date Last Done Comments PNEUMOCOCCAL VACCINE 0-49 YEARS (1 of 2 - PCV) 011 CHLAMYDIA SCREENING (ANNUAL) 11-24 YEARS 12/25/2015 HPV VACCINES (2 - 3-dose series) 01/29/2020 01/01/20 20 DTAP/TDAP/TD VACCINES (1 - Tdap) 12/25/2023 HEPATITIS B VACCINES (1 of 3 - 19+ 3-dose series) 02/2024 INFLUENZA VACCINE (#1) 2024 Insurance CIG OPEN ACCESS HMO [employer] OPEN ACCESS HMO CIG OA O POS NETWORK Advance Directives For more information, please contact: [phone] * Full Code (Latest Code Status on File) Date Activated Date Inactivated Comments 01/02/2018 8:30 AM 01/02/2018 2:16 PM * Full Code Date Activated Date Inactivated Comments 08/15/2017 7:57 AM 08/15/2017 12:39 PM Care Teams Pbx Teacher Relationship Specialty Start Date End Date Ryland Iniguez MD PCP - General Pediatrics 04/01/12
--- OUTSIDE RECORDS SUMMARY | 2025-01-24 02:39 | XMS_ITS | Referral Summary ---
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
--- OUTSIDE RECORDS SUMMARY | 2025-01-24 02:39 | XMS_ITS | Clinical Summary ---
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 Gender Identity Not on file Sexual Orientation Not on file Obstetrics History Last Filed Vital Signs Vital Sign Reading [...] Pneumococcal vaccine <65 (1 of 1 - PPSV23) 2010 03/29/2006, 07/04/2005, 04/25/2005, Additional history exists DTaP/Tdap/Td Vaccine (6 - Tdap) 12/25/2015 02/14/2010, 03/29/2006, 07/04/2005, Additional history exists HPV Vaccines (2 - 3-dose series) 04/21/2022 03/24/2022 Meningococcal B Vaccine (2 of 2 - Bexsero SCDM 2-dose series) 09/23/2022 03/24/2022 Regular Well Visit/Exam 18-64 2022 Covid-19 Vaccine ( season) 2024 10/17/2021, 03/01/2021, 02/08/2021 Influenza Vaccine (#1) 2024 7, 08/17/2007, 10/31/2005, Additional history exists Hepatitis B Screening Completed 09/28/2005, 005 Meningococcal Vaccine Aged Out No michelle maco eligible based on patient's age to complete this topic Insurance CIGNA CIGNA CIGNA CIGNA CIGNA CIGNA Care Teams Rewinder Relationship Specialty Start Date End Date No, Physician PCP - General 02/20/23 [place] [address] [address] 02/20/23
[2025-01-24 02:57] LABS: Basophils Percent Auto 0.4 % (0.2-1.2); Eosinophils Absolute Auto 0.2 K/mm3 (0-0.3); Eosinophils Percent Auto 1.7 % (0-4.4); Hematocrit 40.5 % (37.0-47.0); Hemoglobin 13.3 g/dL (12.0-15.0); Immature Granulocyte Absolute 0.03 K/mm3 (0.00-0.031); Immature Granulocyte Percent A 0.3 % (0-0.5); Lymphocytes Absolute Auto 2.59 K/mm3 (0.9-3.2); Lymphocytes Percent Auto 24.7 % (18.3-44.2); Mean Corpuscular HGB Conc 32.8 g/dl (32-36); Mean Corpuscular Hemoglobin 30.3 pg (26-34); Mean Corpuscular Volume 92.3 fl (80-100); Mean Platelet Volume 9.2 fl (7.4-10.4); Monocytes Absolute Auto 0.6 K/mm3 (0.1-0.6); Monocytes Percent Auto 5.9 % (2.6-8.5); Platelet Count Result 365 k/mm3 (150-375); Red Blood Count 4.39 M/mm3 (4.2-5.4); Red Cell Distribution Width 11.8 % (11.5-14.5); White Blood Count 10.5 K/mm3 (4.5-10.0)
[2025-01-24 03:02] LABS: Add Urine Microscopic? NO; Appearance Urine Clear (Clear); Bilirubin Urine Negative (Negative); Blood Urine Negative (Negative); Color Urine Yellow (Yellow); Glucose Urine UA Negative (Negative); Ketones Urine Negative (Negative); Leukocyte Esterase Ur Negative LEU/UL (Negative); Nitrate Urine Negative (Negative); Protein Urine Negative (Negative); Specific Grav Ur 1.013 (1.001-1.035); Urobilinogen Urine 0.2 mg/dL (<2.0)
[2025-01-24 03:05] LABS: Alanine Aminotransferase 16 U/L (6-35); Albumin Level 4.3 g/dL (3.5-5.1); Alkaline Phosphatase 57 U/L (38-126); Anion Gap 8 mmol/L (4-12); Aspartate Amino Transferase 19 U/L (14-36); Bilirubin,Total 0.3 mg/dL (0.2-1.3); Blood Urea Nitrogen 12 mg/dL (7-17); Carbon Dioxide 25 mmol/L (22-30); Chloride 104 mmol/L (98-107); Estimated CRCL calculation 114 ml/min; Estimated Glomerular Filt Rate > 60; Glucose 114 mg/dL (65-110); Lipase 61 U/L (23-300); Potassium 3.7 mmol/L (3.4-5.0); Sodium 137 mmol/L (137-145)
[2025-01-24 03:11] LABS: BEDSIDEPREGUCG Negative (Negative)
[2025-01-24 05:24] VITALS: BP 128/79; PULSE 65; RESP 15; O2SAT 100
--- NOTE | 2025-01-24 06:31 | ED.ABDPAIN ---
HPI - Abdominal Pain General Chief Complaint: Abdominal Pain Stated Complaint: blood in stool, abd pain Time Seen by Provider: 01/24/25 06:11 Source: patient Mode of arrival: ambulatory Limitations: no limitations History of Present Illness HPI narrative: Patient presents with abdominal pain starting around 1300. she had 5 episodes of diarrhea. At about 1830 she noticed blood in her stool. LMP was 12/15 - 3. No history of anemia. Not on iron supplement and not taking Pepto Bismol. Pain described as a constant ache, primarily epigastric. No vomiting but nauseated. This has never happened before. No fever but chills. She states the stools were bright red/pinkish and then 3 more. Not recently eating beats or red food coloring. Not on steroids, anticoagulation, or recent NSAIDs. Related Data Allergies Allergy/AdvReac Type Severity Reaction Status Date / Time No Known Allergies Allergy Verified 01/24/25 02:37 [facility] Past Medical History Medical History (Updated 01/25/25 @ 00:00 by Christie Hernandes) No active medical problems Social History Social History (Updated 11/28/24 @ 18:09 by Dotty Carlson PA-C) Substance use: never Exam Narrative: GENERAL: Well-appearing, well-nourished, and in no acute distress. HEAD: Normocephalic, atraumatic. EYES: Non injected, non icteric ENT: Nares clear, no rhinorrhea or epistaxis. NECK: Supple. CHEST: Speaking in full sentences. No respiratory distress. HEART: Regular rate and rhythm. . ABDOMEN: Soft, nondistended. Non tender to palpation. No rigidity/guarding. not peritoneal. INGRID performed. Normal rectal tone. No masses. FOBT/ guiaic negative. EXTREMITIES: Normal range of motion. No lower extremity edema. SKIN: Warm, dry, no rash. NEURO: No focal deficits. Alert and oriented x3. PSYCH: Normal mood and affect. Course Vital Signs Vital signs: Vital Signs Temperature 98.2 F 01/24/25 02:39 Pulse Rate 84 01/24/25 02:39 Respiratory Rate 14 01/24/25 02:39 Blood Pressure 119/75 01/24/25 02:39 Pulse Oximetry 100 01/24/25 02:39 Oxygen Delivery Room Air 01/24/25 02:39 Temperature 98.2 F 01/24/25 02:39 Pulse Rate 62 01/24/25 09:15 Respiratory Rate 18 01/24/25 09:15 Blood Pressure 112/74 01/24/25 09:15 Pulse Oximetry 98 01/24/25 09:15 Oxygen Delivery Room Air 01/24/25 02:39 MDM - Abdominal Pain MDM Narrative Medical decision making narrative: Patient presents with abdominal pain and bloody stool, described as bright red/pinkish. In the emergency department they are afebrile with vital signs within normal limits. test negative. Urinalysis unremarkable. Very mild leukocytosis. No anemia initially. 4 hour H&H is ordered. Normal renal function. No marked electrolyte abnormalities. Sinking Spring Score:9 points, 93?% Probability of safe discharge (absence of rebleeding, blood transfusion, therapeutic intervention, 28 day readmission, or ). Discharge NOT recommended. Consider admission with further workup and resuscitation as necessary. However, this is just 1 point over the standard cut off for safe discharge recommendation and, all other things considered, she is young and healthy. 1.5gram drop in Hgb but she has had no further episodes while waiting in the ED. Her low(imani) blood pressure at baseline is largely due to her age and body habitus. We discussed an observation admission versus discharging home. She thinks about it for a bit but, through shared decision making, opts to be discharged with plans for follow up as well as given strict ED return precautions. Prescribed acetaminophen, omeprazole, and ondansetron. Differential Diagnosis Differential diagnosis: Likely other (inflammatory/infectious diarrhea, Menkel's diverticulum, anal fissure, diverticulosis/diverticulitis; gastritis; hemorrhoids) Lab Data Attestation: I reviewed the patient's lab results. 01/24/25 07:12 01/24/25 02:50 Labs: Lab Results 01/24/25 01/24/25 01/24/25 Range/Units 02:50 02:55 03:09 WBC 10.5 H (4.5-10.0) K/mm3 RBC 4.39 (4.2-5.4) M/mm3 Hgb 13.3 (12.0-15.0) g/dL Hct 40.5 (37.0-47.0) % MCV 92.3 (80-100) fl MCH 30.3 (26-34) pg MCHC 32.8 (32-36) g/dl RDW 11.8 (11.5-14.5) % Plt Count 365 (150-375) k/mm3 MPV 9.2 (7.4-10.4) fl Immature Gran % (Auto) 0.3 (0-0.5) % Neut % (Auto) 67.0 (45.5-73.1) % Lymph % (Auto) 24.7 (18.3-44.2) % [place] % (Auto) 5.9 (2.6-8.5) % Eos % (Auto) 1.7 (0-4.4) % Baso % (Auto) 0.4 (0.2-1.2) % Lymph # (Auto) 2.59 (0.9-3.2) K/mm3 [place] # (Auto) 0.6 (0.1-0.6) K/mm3 Eos # (Auto) 0.2 (0-0.3) K/mm3 Baso # (Auto) 0.0 (0.0-0.1) K/mm3 Abs Immat Gran (auto) 0.03 (0.00-0.031) K/mm3 Absolute Neuts (auto) 7.0 H (1.3-6.7) K/mm3 Absolute Nucleated RBC 0.000 (0.0-0.012) K/mm3 Nucleated RBC % 0.0 (0.0-0.2) % Sodium 137 (137-145) mmol/L Potassium 3.7 (3.4-5.0) mmol/L Chloride 104 (98-107) mmol/L Carbon Dioxide 25 (22-30) mmol/L Anion Gap 8 (4-12) mmol/L BUN 12 (7-17) mg/dL Creatinine 0.73 (0.7-1.0) mg/dL Estim Creat Clear Calc 114 ml/min Estimated GFR > 60 (59 - ) Glucose 114 H (65-110) mg/dL Calcium 9.0 (8.4-10.2) mg/dL Total Bilirubin 0.3 (0.2-1.3) mg/dL AST 19 (14-36) U/L ALT 16 (6-35) U/L Alkaline Phosphatase 57 (38-126) U/L Total Protein 8.0 (6.3-8.2) g/dL Albumin 4.3 (3.5-5.1) g/dL Lipase 61 (23-300) U/L Urine Color Yellow (Yellow) Urine Appearance Clear (Clear) Urine pH 7.0 (5.0-9.0) Ur Specific [place] 1.013 (1.001-1.035) Urine Protein Negative (Negative) mg/dL Urine Glucose (UA) Negative (Negative) mg/dL Urine Ketones Negative (Negative) mg/dL Ur Blood (Man) Negative (Negative) Urine Nitrate Negative (Negative) Urine Bilirubin Negative (Negative) Urine Urobilinogen 0.2 (<2.0) mg/dL Leukocyte Esterase Rfl Negative (Negative) LEO/UL POC Urine HCG, Qual Negative (Negative) Influenza A (RT-PCR) (Negative) Influenza B (RT-PCR) (Negative) SARS-CoV-2 RNA (RT-PCR) (Negative) 01/24/25 Range/Units 07:12 WBC (4.5-10.0) K/mm3 RBC (4.2-5.4) M/mm3 Hgb 11.8 L (12.0-15.0) g/dL Hct 34.8 L (37.0-47.0) % MCV (80-100) fl MCH (26-34) pg MCHC (32-36) g/dl RDW (11.5-14.5) % Plt Count (150-375) k/mm3 MPV (7.4-10.4) fl Immature Gran % (Auto) (0-0.5) % Neut % (Auto) (45.5-73.1) % Lymph % (Auto) (18.3-44.2) % [place] % (Auto) (2.6-8.5) % Eos % (Auto) (0-4.4) % Baso % (Auto) (0.2-1.2) % Lymph # (Auto) (0.9-3.2) K/mm3 [place] # (Auto) (0.1-0.6) K/mm3 Eos # (Auto) (0-0.3) K/mm3 Baso # (Auto) (0.0-0.1) K/mm3 Abs Immat Gran (auto) (0.00-0.031) K/mm3 Absolute Neuts (auto) (1.3-6.7) K/mm3 Absolute Nucleated RBC (0.0-0.012) K/mm3 Nucleated RBC % (0.0-0.2) % Sodium (137-145) mmol/L Potassium (3.4-5.0) mmol/L Chloride (98-107) mmol/L Carbon Dioxide (22-30) mmol/L Anion Gap (4-12) mmol/L BUN (7-17) mg/dL Creatinine (0.7-1.0) mg/dL Estim Creat Clear Calc ml/min Estimated GFR (59 - ) Glucose (65-110) mg/dL Calcium (8.4-10.2) mg/dL Total Bilirubin (0.2-1.3) mg/dL AST (14-36) U/L ALT (6-35) U/L Alkaline Phosphatase (38-126) U/L Total Protein (6.3-8.2) g/dL Albumin (3.5-5.1) g/dL Lipase (23-300) U/L Urine Color (Yellow) Urine Appearance (Clear) Urine pH (5.0-9.0) Ur Specific [place] (1.001-1.035) Urine Protein (Negative) mg/dL Urine Glucose (UA) (Negative) mg/dL Urine Ketones (Negative) mg/dL Ur Blood (Man) (Negative) Urine Nitrate (Negative) Urine Bilirubin (Negative) Urine Urobilinogen (<2.0) mg/dL Leukocyte Esterase Rfl (Negative) LEO/UL POC Urine HCG, Qual (Negative) Influenza A (RT-PCR) Negative (Negative) Influenza B (RT-PCR) Negative (Negative) SARS-CoV-2 RNA (RT-PCR) Negative (Negative) Imaging Data Radiologist's impression: ITS Impressions Abdomen/Pelvis CT 01/24/25 07:06 IMPRESSION: 1. No acute intra-abdominal/pelvic process. Discharge Plan Discharge Clinical Impression: Hematochezia, Abdominal pain, epigastric Patient Disposition: Home Condition: Stable Instructions: Antibiotic Form, Gastrointestinal Bleeding (ED), Epigastric Pain (ED) Additional Instructions: As we discussed, no clear cause of your bloody stools was identified. Although you had a slight drop in your hemoglobin, you are otherwise young and healthy and have not had recurrence of symptoms while in the ED. Reasonable to trial outpatient management. Follow-up with your primary care physician to discuss whether they recommend another CBC or H/H (lab values) within the next week. It was initially 13.3 and then 11.8 on the repeat lab 4 hours later If you continue to have episodes like this you can also follow-up with the [facility] listed below. For nausea, you can use the oral distintegrating tablets of Zofran. Return to the emergency department any new/worsening/unmanaged symptoms. Patient Language: Finnish Prescriptions: New acetaminophen 500 mg capsule 1,000 mg PO Q6H PRN (Reason: pain) Qty: 30 0RF omeprazole 20 mg tablet,delayed release (DR/EC) 20 mg PO DAILY 14 Days Qty: 14 0RF Rx Instructions: start 01/25/25 (received first dose ED) ondansetron 4 mg tablet,disintegrating 4 mg PO Q8H PRN (Reason: nausea and vomiting) Qty: 7 0RF Follow-up/Referrals: Stan Sheldon MD [Physician] - (gastroenterology) UNKNOWN,DOCTOR [Primary Care Provider] - Stand Alone Forms: Work/School Release IP Time of Disposition: 08:40
--- OUTSIDE RECORDS SUMMARY | 2025-01-24 06:31 | XMS_ITS | Referral Summary ---
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
--- OUTSIDE RECORDS SUMMARY | 2025-01-24 06:31 | XMS_ITS | Clinical Summary ---
Author Organization [facility] Address [address] [facility] [place] [address] Care Team Providers Care Merchant Miller Name Role Phone Ryland Iniguez MD Primary Care Provider [phone] Source Comments [facility],non-owned Affiliates and Associated Physician Practices is amultiple site organization consisting of ambulatory clinics and hospital sitesin [place], [place], [place] and [place]. This disclosure is being madepursuant to the Care Everywhere program and may not contain all information available regarding this patient. Last updated 18.[facility] Allergies No known active allergies Medications * [...] age to complete this topic Care Teams Merchant Miller Relationship Specialty Start [place] [address] [place] [address] PCP - General Pediatrics 05/15/19
--- OUTSIDE RECORDS SUMMARY | 2025-01-24 06:31 | XMS_ITS | Continuity of Care Document ---
Author Organization [facility] Address [address] [place] [address] Phone Care Team Providers Care Caul Dresser Name Role Phone Heather COOK, Jyoti Unavailable [...] Diagnoses Date Provider Providers Copied on Encounter [facility], [address], [facility], [phone] [facility] No Information 6 Heather Montes. [address] [facility], [facility] [address], [place], [address] . tel: [phone] [facility], [address] [facility] [address], [place], [facility], tel:[phone] [facility] Medial tibial stress syndrome, right, initial encounterMedial tibial stress syndrome, left, initial encounter 6 Heather Montes. [address] [facility], [facility] [address], [place], [address] . tel: [phone] Family History Family Member Type Diagnosis Age [...]
--- OUTSIDE RECORDS SUMMARY | 2025-01-24 06:31 | XMS_ITS | Clinical Summary ---
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
--- OUTSIDE RECORDS SUMMARY | 2025-01-24 06:31 | XMS_ITS | Continuity of Care Document ---
Author Organization [employer] Address [address] [place] [address] Phone Care Team Providers Care Pairer Substandard Name Role Phone Ryland Iniguez MD Unavailable [...] ssessment, With Scoring/Doct, Per [employer] OFFICE [id number] BODY MASS INDEX DOCD SYST BP LT [...] ssessment, With Scoring/Doct, Per [employer] OFFICE [id number]-DIC-[id number] BODY MASS INDEX DOCD SYST BP LT 130 MM HG DIAST BP < 80 MM HG OFFICE MSKDA-BNP-DKCVCQUZ TEST, HCG, QL (U) ESSE 2021 OFFICE NJVNJ-OJR-[id number] OFFICE AYYNK-VDQ-PYIEFWOH Brief Emotional/Behavioral A ssessment, With Scoring/Doct, Per [...] (Bexsero) Meningococcal Recombinant, Pro tein/Outer Membrane OFFICE GTPRX-CRO-OGKLZGZR OFFICE FRKYK-VVB-ALAAZHSQ OFFICE WOLGT-FVK-GLSIHIUD COVID-19, Amplified Probe Technique Brief Emotional/Behavioral A ssessment, With Scoring/Doct, Per [facility] Clin depression screen doc Brief Emotional/Behavioral A ssessment, With Scoring/Doct, Per [employer] HPV IM Types 6, 11, 16, 18, 31, 33, 45, 58 NONVALENT 9vHPV 3 DOSE SCHED IMADM ANY ROUTE 1ST VAC/TOX MENACTRA MENINGOCOCCAL CONJUGATE, QUAD, VACCINE PREVENTATIVE-EST: - OFFICE [id number]-IIH-NPQBPOEK BODY MASS INDEX DOCD OFFICE BVPAR-GCK-PXICMBAT Brief Emotional/Behavioral A ssessment, With Scoring/Doct, Per [facility] Clin depression screen doc Brief Emotional/Behavioral A ssessment, With Scoring/Doct, Per [employer] OFFICE RJHOW-EXY-DWTBNONO BODY MASS INDEX DOCD Brief Emotional/Behavioral A ssessment, With Scoring/Doct, Per [employer] Brief Emotional/Behavioral A ssessment, With Scoring/Doct, Per [employer] Pt inelig neg scrn depres OFFICE BFNPL-ROP-QWTPABBO BODY MASS INDEX DOCD Brief Emotional/Behavioral A ssessment, With Scoring/Doct, Per [facility] Clin depression screen doc Brief Emotional/Behavioral A ssessment, With Scoring/Doct, Per [employer] OFFICE XXCLL-HFU-YRWHDRVH Brief Emotional/Behavioral A ssessment, With Scoring/Doct, Per [employer] Clin depression screen doc Brief Emotional/Behavioral A ssessment, With Scoring/Doct, Per [employer] IMADM ANY ROUTE 1ST VAC/TOX HPV IM Types 6, 11, 16, 18, 31, 33, 45, 58 NONVALENT 9vHPV 3 DOSE SCHED PREVENTATIVE-EST: 10-07 BODY MASS INDEX DOCD OFFICE EKSGK-GQB-SVWSFAKI RAPID STREP A CULTURE, PRESUMPATIVE, SCREENING ONLY [...] Diagnoses Date Provider Providers Copied on Encounter [employer], [address], [place], [place], [address] , tel: [phone] [facility] No Information 4 Hira Marcelino. [address] [address], [place], [place], [address], [place]. tel:[phone] [employer], [address], [place], [place], [address] , tel: [phone] [employer] [facility] No Information 4 Hira Marcelino. [address] [facility] [address], [place], [place], [address], [place]. tel:[phone] OFFICE QITTW-FHN-SX PANDED [employer], [address], [place], [place], [address] , [place] tel:[phone] [facility] anxiety and depression (chief complaint) Anxiety 4 Hira Marcelino. [address] [place] [address], [address], [place], [place], [address], [place]. tel:[phone] Referring Provider: Ryland Iniguez , [address] [place] [address] [address], [place], [address] . tel:[phone] PREVENTATIVE -EST: 18-39 [facility], [address], [place], [place], [address] , [place] tel:[phone] [facility] well exam (chief complaint)a nxiety and depression (chief complaint) Encounter for routine child health examination without abnormal findingsAnxietyP ain, joint, knee, leftDysmenorrhea in adolescentDyspep siaDepression, unspecified depression typeSeasonal allergic rhinitis due to pollenMaternal family history of cancerIrritable bowel syndrome, unspecified typeGender dysphoria of adolescence 3 Hira Marcelino. [address] [place] [address], [address], [place], [place], [address], [place]. tel:[phone] Referring Provider: Ryland Iniguez , [address] [place] [address] [address], [place], [address] . tel:[phone] OFFICE XRSGV-COK-YF [facility], [address], [place], [place], [address] , [place] tel:[phone] [facility] anxiety and depression (chief complaint) AnxietyPain, joint, knee, left 3 Hira Marcelino. [address] [place] [address], [address], [place], [place], [address], [place]. tel:[phone] Referring Provider: Ryland Iniguez , [address] [place] [address] [address], [place], [address] . tel:[phone] OFFICE CMPFC-TPU-AS TAILED [facility], [address], [place], [place], [address] , [place] tel: [phone] [facility] acute problem (chief complaint) DysmenorrheaMate rnal family history of cancer 2 Freddie Mendoza. [address] [facility], [address], [place], [place], [address], [place]. tel:[phone] Referring Provider: Ryland Iniguez , [address] [place] [address] [address], [place], [address] . tel:[phone] OFFICE DWVGK-PNH-ND [facility], [address], [place], [place], [address] , [place] tel: [phone] [facility] acute problem (chief complaint) Dyspepsia 2 Hira Marcelino. [address] [place] [address], [address], [place], [place], [address], [place]. tel:[phone] Referring Provider: Ryland Iniguez , [address] [place] [address] [address], [place], [address] . tel:[phone] OFFICE THTAH-DPF-QC [facility], [address], [place], [place], [address] , [place] tel:[phone] [facility] acute problem (chief complaint) Depression, unspecified depression typeAnxietyStrai n of right trapezius muscle, initial encounter 2 Hira Marcelino. [address] [place] [address], [address], [place], [place], [address], [place]. tel:[phone] Referring Provider: Ryland Iniguez , [address] [place] [address] [address], [place], [address] . tel:[phone] PREVENTATIVE -EST: 1217 [facility], [address], [place], [place], [address] , [place] tel: [phone] [facility] well exam (chief complaint) Encounter for routine child health examination without abnormal findingsIrritabl e bowel syndrome, unspecified typeAnxietySeaso nal allergic rhinitis due to pollenDepression , unspecified depression typeIntractable migraine without status migrainosus, unspecified migraine type 2 Hira Marcelino. [address] [place] [address], [address], [facility], [place], [address], [place]. tel:[phone] Referring Provider: Ryland Iniguez , [address] [place] [address] [address], [facility] [place], [address] . tel:[phone] [facility], [address], [place], [place], [address] , [place] tel:[phone] [facility] No Information Mar- 2 Hira Marcelino. [address] [place] [address], [address], [facility], [place], [address], [place]. tel:[phone] Referring Provider: Ryland Iniguez , [address] [place] [address] [address], [place], [address] . tel:[phone] OFFICE HNRBN-DXS-ZM [facility], [address], [place], [place], [address] , [place] tel:[phone] [facility] acute problem (chief complaint) Low back pain, unspecified back pain laterality, u 2 Hira Marcelino. [address] [place] [address], [address], [place], [place], [address], [place]. tel:[phone] Referring Provider: Ryland Iniguez , [address] [place] [address] [address], [place], [address] . tel:[phone] OFFICE IRBDM-ZLD-XF [facility], [address], [place], [place], [address] , [place] tel:[phone] [facility] acute problem (chief complaint) Low back pain, unspecified back pain laterality, u 2 Hira Marcelino. [address] [place] [address], [address], [facility], [place], [address], [place]. tel:[phone] Referring Provider: Ryland Iniguez , [address] [place] [address] [address], [facility] [place], [address] . tel:[phone] OFFICE INNVP-TIQ-JQ [employer], [address], [place], [place], [address] , [place] tel:[phone] [facility] [employer] [facility] acute problem (chief complaint) COVID-19 2 Ianbraden Marin. [address] [facility], [address], [place], [address], [place]. tel:[phone] Referring Provider: Ryland Iniguez , [address] [place] [address] [address], [place], [address] . tel:[phone] [employer], [address], [place], [place], [address] , [place] tel:[phone] [facility] No Information 1 Hira Marcelino. [address] [place] [address], [address], [place], [place], [address], [place]. tel:[phone] PREVENTATIVE -EST: 10-07 [employer], [address], [place], [place], [address] , tel: [phone] [facility] well exam (chief complaint)a cute problem (chief complaint) Encounter for routine child health examination without abnormal findingsSeasonal allergic rhinitis due to pollenIrritable bowel syndrome, unspecified typeAnxietyCough variant asthma 1 Hira Marcelino. [address] [place] [address], [address], [place], [place], [address], [place]. tel:[phone] Referring Provider: Ryland Iniguez , [address] [place] [address] [address], [place], [address] . tel:[phone] OFFICE JOFSY-RAP-YX [employer], [address], [place], [place], [address] , [place] tel:[phone] [facility] acute problem (chief complaint) Other urticaria 1 Kimo Marin. [address] [facility], [address], [place], [place], [address], [place]. tel:[phone] Referring Provider: Ryland Iniguez , [address] [place] [address] [address], [place], [address] . tel:[phone] [facility], [address], [place], [place], [address] , tel: [phone] Care Management Problem related to psychosocial circumstancesAnx ietyDepression, unspecified depression type 1 Hira Marcelino. [address] [place] [address], [address], [place], [place], [address], [place]. tel:[phone] OFFICE YSHVU-TML-CY [facility], [address], [place], [place], [address] , tel: [phone] [facility] acute problem (chief complaint) AnxietyAbdominal painDepression, unspecified depression typeProblem related to psychosocial circumstances 1 Hira Marcelino. [address] [place] [address], [address], [place], [place], [address], [place]. tel:[phone] Referring Provider: Ryland Iniguez , [address] [place] [address] [address], [place], [address] . tel:[phone] OFFICE XPUKB-FZH-AX [facility], [address], [place], [place], [address] , tel:[phone] [facility] acute problem (chief complaint) AnxietySleep stage dysfunction Sep-0 2- 0 Hira Marcelino. [address] [place] [address], [address], [place], [place], [address], [place]. tel:[phone] Referring Provider: Ryland Iniguez , [address] [place] [address] [address], [place], [address] . tel:[phone] OFFICE HQTGM-OLR-TY [facility], [address], [place], [place], [address] , tel:[phone] [facility] acute problem (chief complaint) AnxietySeasonal allergic rhinitis due to pollenSleep stage dysfunctionIrrit able bowel syndrome, unspecified type Apr-0 1-202 0 Hira Marcelino. [address] [place] [address], [address], [place], [place], [address], [place]. tel:[phone] Referring Provider: Ryland Iniguez , [address] [place] [address], [place], [address] . tel:[phone] PREVENTATIVE -EST: 12 [facility], [address], [place], [place], [address] , [place] tel: [phone] [facility] well exam (chief complaint) AnxietyAllergic rhinoconjunctivi tisSeasonal allergic rhinitis due to pollenProblem related to psychosocial circumstancesCou gh variant asthmaSleep stage dysfunctionDisor derMigraine without aura and without status migrainosus, not intractableEncou nter for routine child health examination with abnormal findingsAbdomina l pain 0 Hira Marcelino. [address] [place] [address], [address] [address], [place], [place], [address], [place]. tel:[phone] Referring Provider: Ryland Iniguez , [address] [place] [address], [place], [address] . tel:[phone] OFFICE DZHSG-XGS-TH PANDED [facility], [address], [place], [place], [address] , [place] tel:[phone] [facility] acute problem (chief complaint) Acute upper respiratory infection, unspecifiedUnspe cified acute conjunctivitis, unspecified eye Sep-201 9 Dario Neal. [address] [place] [address], [address], [place], [place], [address], [place]. tel:[phone] Referring Provider: Ryland Iniguez , [address] [place] [address] [facility] [address], [place], [address] . tel:[phone] [facility], [address], [place], [place], [address] , tel:[phone] [facility] CoughMild intermittent asthma with acute exacerbationSuba cute sinusitis, unspecified location Jan-201 9 Hira Marcelino. [address] [place] [address], [address], [place], [place], [address], . tel:[phone] Referring Provider: Ryland Iniguez , [address] [place] [address] [address], [place], [address] . tel:[phone] [employer], [address], [place], [place], [address] , tel:[phone] [facility] Diarrhea, unspecified type Feb-0 9 Hira Marcelino. [address] [place] [address], [address], [place], [place], [address], [place]. tel:[phone] Referring Provider: Ryland Iniguez , [address] [place] [address] [address], [place], [address] . tel:[phone] [employer], [address], [place], [place], [address] , tel:[phone] [facility] Cough variant asthmaAcute upper respiratory infection, unspecified 8 Hira Marcelino. [address] [place] [address], [address], [place], [place], [address], [place]. tel:[phone] Referring Provider: Ryland Iniguez , [address] [place] [address] [address], [place], [address] . tel:[phone] [employer], [address], [place], [place], [address] , tel:[phone] [facility] CoughCough variant asthma 8 Dionte Dixon. [address] [place] [address], [address], [place], [place], [address], [place]. tel:[phone] Referring Provider: Ryland Iniguez , [address] [place] [address] [address], [place], [address] . tel:[phone] [facility], [address], [place], [place], [address] , tel:[phone] [employer] Cough variant asthma 3 0 7 Hira Marcelino. [address] [place] [address], [address], [place], [place], [address], [place]. tel:[phone] Referring Provider: Ryland Iniguez , [address] [place] [address] [address], [place], [address] . tel:[phone] [facility], [address], [place], [place], [address] , [place] tel:[phone] [facility] Abdominal pain 7 Trenton Cleveland. [address] [place] [address], [address], [place], [place], [address], [place]. tel:[phone] Referring Provider: Ryland Iniguez , [address] [place] [address] [address], [place], [address] . tel:[phone] [facility], [address], [place], [place], [address] , [place] tel: [phone] [facility] Abdominal pain 7 Hira Marcelino. [address] [place] [address], [address], [place], [place], [address], [place]. tel:[phone] Referring Provider: Ryland Iniguez , [address] [place] [address] [address], [place], [address] . tel:[phone] [facility], [address], [place], [place], [address] , [place] tel:[phone] [facility] Encounter for routine child health examination without abnormal findingsAllergic rhinitis, unspecifiedMild persistent asthma without complicationAbdo ramon painSleep stage dysfunction 7 Hira Marcelino. [address] [place] [address], [address], [place], [place], [address], [place]. tel:[phone] Referring Provider: Ryland Iniguez , [address] [place] [address] [address], [place], [address] . tel:[phone] [facility] [employer], [address], [place], [place], [address] , tel:[phone] [facility] Abdominal pain 7 Hira Marcelino. [address] [place] [address], [address], [facility], [place], [address], [place]. tel:[phone] Referring Provider: Ryland Iniguez , [address] [place] [address] [address], [facility] [place], [address] . tel:[phone] [facility], [address], [place], [place], [address] , [place] tel:[phone] [facility] Pain of lower extremity, unspecified laterality Apr- 8 6 Hira Marcelino. [address] [place] [address], [address], [facility], [place], [address], [place]. tel:[phone] Referring Provider: Ryland Iniguez , [address] [place] [address] [address], [facility] [place], [address] . tel:[phone] [facility], [address], [place], [place], [address] , [place] tel: [phone] [facility] Abdominal painAllergic rhinitis, unspecifiedConst ipation, unspecified constipation type Dec- 6201 6 Kimo Marin. [address] [place] [address], [address], [place], [address], [place]. tel:[phone] Referring Provider: Ryland Iniguez , [address] [place] [address] [address], [facility] [place], [address] . tel:[phone] [facility], [address], [place], [place], [address] , [place] tel:[phone] [facility] Acute pharyngitis, unspecified Dec- 5 Hira Marcelino. [address] [place] [address], [address], [facility], [place], [address], [place]. tel:[phone] Referring Provider: Ryland Iniguez , [address] [place] [address] [address], [place] [facility] [place], [address] . tel:[phone] [facility], [address], [place], [place], [address] , [place] tel: [phone] [facility] Convulsive syncopeOther convulsionsViral illness Sep- 5 Hira Marcelino. [address] [facility], [address], [place], [place], [address], [place]. tel:[phone] Referring Provider: Ryland Iniguez , [address] [place] [address] [address], [place], [address] . tel:[phone] [facility], [address], [place], [place], [address] , tel:[phone] [facility] 1mo-18 year well child checkALLERGIC RHINITIS NOSAllergic rhinoconjunctivi tis 5 Hira Marcelino. [address] [place] [address], [address], [place], [place], [address], [place]. tel:[phone] Referring Provider: Ryland Iniguez , [address] [place] [address] [address], [place], [address] . tel:[phone] [facility], [address], [place], [place], [address] , tel:[phone] [facility] Viral illness Jan- 5 Hira Marcelino. [address] [place] [address], [address], [place], [place], [address], [place]. tel:[phone] Referring Provider: Ryland Iniguez , [address] [place] [address] [address], [place], [address] . tel:[phone] [facility], [address], [place], [place], [address] , [place] tel:[phone] [facility] URI 5 Kleber Yu. [address] [facility], [address], [place], [place], [address], [place]. tel:[phone] Referring Provider: Ryland Iniguez , [address] [place] [address] [address], [place], [address] . tel:[phone] [facility], [address], [place], [place], [address] , tel:[phone] [facility] Wrist sprain 4 Hira Marcelino. [address] [place] [address], [address], [place], [place], [address], . tel:[phone] Referring Provider: Ryland Iniguez , [address] [place] [address] [address], [place], [address] . tel:[phone] [facility], [address], [place], [place], [address] , tel:[phone] [facility] Allergic rhinoconjunctivi tis 4 Evan Alstona. [address] [place] [address], [address], [place], [place], [address], [place]. tel:[phone] Referring Provider: Ryland Iniguez , [address] [place] [address] [address], [place], [address] . tel:[phone] [facility], [address], [place], [place], [address] , tel:[phone] [facility] Streptococcal sore throat 3 Marichuy Sexton. [address] [place] [address], [address], [place], [place], [address], [place]. [phone] Referring Provider: Ryland Iniguez , [address] [place] [address] [address], [place], [address] . tel:[phone] [facility] [employer], [address], [place], [place], [address] , tel:[phone] [facility] History of strep sore throat 3 Marichuy Sexton. [address] [place] [address], [address], [place], [place], [address], . [phone] Referring Provider: Ryland Iniguez , [address] [place] [address] [address], [place], [address] . tel:[phone] [facility], [address], [place], [place], [address] , [place] tel: [phone] [facility] Strep pharyngitis 3 Ianbraden Marin. [address] [facility], [address], [facility], [address], [place]. [phone] Referring Provider: Taniazion Malin, [address] [facility] [address], [place], [address] . tel:[phone] [facility], [address], [place], [place], [address] , tel: [phone] [facility] Skin laceration 3 Hira Marcelino. [address] [facility], [address], [place], [place], [address], [place]. [phone] Referring Provider: Ryland Iniguez , [address] [place] [address] [address], [place], [address] . tel:[phone] [facility], [address], [place], [place], [address] , [place] tel:[phone] [facility] Abdominal pain, unspecified siteCoughUrticar ia 3 Dkdonny Acosta. [address] [facility], [address], [place], [place], [address]. tel:[phone] Referring Provider: Ayo Fischer, [address] [facility] [address], [place], [address]. tel:[phone] [facility], [address], [place], [place], [address] , tel:[phone] [facility] Acute upper respiratory infections of unspecified site 3 Marichuy Sexton. [address] [facility], [address], [facility], [address], [place]. tel:[phone] Referring Provider: Ryland Iniguez , [address] [place] [address] [address], [place], [address] . tel:[phone] [facility], [address], [place], [place], [address] , [place] tel: [phone] [facility] Abdominal pain, generalizedIBS (irritable bowel syndrome) 2 Hira Marcelino. [address] [facility], [address], [place], [place], [address], [place]. tel:[phone] Referring Provider: Ryland Iniguez , [address] [place] [address] [address], [place], [address] . tel:[phone] [facility], [address], [place], [place], [address] , [place] tel: [phone] [facility] CoughAcute pharyngitis 2 Evan Esposito. [address] [place] [address], [address], [place], [place], [address], [place]. tel:[phone] Referring Provider: Ryland Iniguez , [address] [place] [address] [address], [place], [address] . tel:[phone] [facility], [address], [place], [place], [address] , [place] tel: [phone] [facility] Other specified viral wartsViral warts, unspecified 1 Hira Marcelino. [address] [place] [address], [address], [place], [place], [address], [place]. tel:[phone] Referring Provider: Ryland Iniguez , [address] [place] [address] [address], [place], [address] . tel:[phone] [facility], [address], [place], [place], [address] , [place] tel: [phone] [facility] Acute upper respiratory infections of unspecified site 1 Marichuy Sexton. [address] [place] [address], [address], [place], [place], [address], [place]. tel:[phone] Referring Provider: Ryland Iniguez , [address] [place] [address] [address], [place], [address] . tel:[phone] [facility], [address], [place], [place], [address] , tel: [phone] [email or web address] Abdominal pain, generalized Sep-0 -201 1 Hira Marcelino. [address] [facility], [address], [place], [place], [address], [place]. [phone] Referring Provider: Ryland Iniguez , [address] [place] [address] [address], [place], [address] . tel:[phone] [facility], [address], [place], [place], [address] , tel: [phone] [facility] Routine infant or child health checkEXTRINSIC ASTHMA, UNSPECIFIEDRouti ne or child health check Morgan-2 1 Hira Marcelino. [address] [place] [address], [address], [place], [place], [address], . tel:[phone] Referring Provider: Ryland Iniguez , [address] [place] [address] [address], [place], [address] . tel:[phone] [facility], [address], [place], [place], [address] , tel: [phone] [email or web address] EXTRINSIC ASTHMA NOS Oct-2 7-200 9 Hira Marcelino. [address] [place] [address], [address], [place], [place], [address], [place]. tel:[phone] [facility], [address], [place], [place], [address] , tel: [phone] [email or web address] ALLERGIC RHINITIS NOS Oct-2 7-200 7 Hira Marcelino. [address] [place] [address], [address], [place], [place], [address], [place]. tel:[phone] [facility], [address], [place], [place], [address] , tel: [phone] [email or web address] PNEUMONIA, ORGANISM NOS Nov-0 6-200 6 Hira Marcelino. [address] [facility], [address], [place], [place], [address], [place]. tel:[phone] [facility], [address], [place], [place], [address] , [place] tel: [phone] [facility] ESOPHAGEAL REFLUX 0 5-200 5 Hira Ryland. [address] [facility], [address], [place], [place], [address], [place]. tel:[phone] Family History Family Member Type Diagnosis Age [...] doses, administered 21 days apart administered Note: [facility] ; Comfort rce: Other Provider HPV (9-valent) administered Source: New I mmunization Record meningococcal MCV4P administered Source: New Immunization Record Pfizer-BioNTech COVID19 Vaccine, 0.3mL per dose, 2 doses, administered 21 days apart administered Note: entered via [employer] card - EB ; Source: Other Provider Pfizer-BioNTech COVID19 Vaccine, 0.3mL per dose, 2 doses, administered 21 days apart administered Note: entered via [employer] card - [place] ; Source: Other Provider [...] or older) administered Source: New Immunization Record 24604 - DTaP_DTP_DT_PEDS administered Comfort rce: Source Unspecified 24543 - Polio_OPV_IPV administered Source : Source Unspecified 19069 - MMR administered Source: Source Unspecified 24400 - Varicella administered Source: So urce Unspecified 83622 - Influenza administered Source: So urce Unspecified 26104 - Pneumococcal_PCV administered Comfort rce: Source Unspecified 25609 - DTaP_DTP_DT_PEDS, Hib administere d Source: Source Unspecified 41149 - Varicella administered Source: So urce Unspecified 61533 - MMR administered Source: Source Unspecified 60539 - Influenza administered Source: So urce Unspecified 14522 - Influenza administered Source: So urce Unspecified 24308 - Hepatitis_B administered Source: Source Unspecified 33508 - Polio_OPV_IPV administered Source : Source Unspecified 80878 - Hib administered Source: Source Unspecified 08182 - Pneumococcal_PCV administered Comfort rce: Source Unspecified 02128 - DTaP_DTP_DT_PEDS administered Comfort rce: Source Unspecified 49870 - Hepatitis_B administered Source: Source Unspecified 08610 - DTaP_DTP_DT_PEDS administered Comfort rce: Source Unspecified 78344 - Pneumococcal_PCV administered Comfort rce: Source Unspecified 36205 - Polio_OPV_IPV administered Source : Source Unspecified 69012 - Hib administered Source: Source Unspecified 04906 - Pneumococcal_PCV administered Comfort rce: Source Unspecified 36548 - Polio_OPV_IPV administered Source : Source Unspecified 45211 - Hib administered Source: Source Unspecified 35027 - DTaP_DTP_DT_PEDS administered Comfort rce: Source Unspecified 74795 - Hepatitis_B administered Source: Source Unspecified Payers Payer name Insurance type Covered green party ID Authoriza tion(s) CIGNA OPEN ACCESS CI [id number] CIGNA OPEN ACCESS CI [id number] CIGNA OPEN ACCESS CI [id number] CIGNA OPEN ACCESS CI [id number] CIGNA OPEN ACCESS CI [id number] CIGNA OPEN ACCESS CI [id number] CIGNA OPEN ACCESS CI [id number] CIGNA OPEN ACCESS CI [id number] Social History Type Description Quantity Date Captured [...] Date Type Action Status Referral Referred To: [id number] [facility] [address] [place], [phone] Ordered: ULTRASOUND, PELVIC (NONOBSTETRIC), REAL TIME W/ DOCUMENTATION; COMPLETE Appointment date/timeframe: 08/29/2022 ordered Referral Referred To: [address] [facility] [address] [place], [phone] Ordered: XR lumbosacral spine, 2-3 views ordered Referral Ordered: [facility] (related to Problem related to psychosocial circumstances) ordered Referral Referred To: [id number] Ordered: Referrals: Counseling/mental health services. Location: [facility]. 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 Exercise/sports - jogging.SCHOOL: The patient attends [employer] and grade level is college. Grades earned: A's and B's. anxiety and depression well exam nausea inc latel yworse with inc stress anxiety and depression HPI SUMMA RY: to go to [employer] live in the dormsx are okran out of medshas not taken for 10 daysmeds helpsocial OKgets along wiht dad oksleep okeating no sexual or gender issuesgrades okjob okunable anni 3 weeks ago Went to the [facility] [place] patellar tendonitis not better folowup next week.SCHOOL: The patient attends [employer] and grade level is twelfth grade. Grades [...] few [place] 3a to arms--little spots+itchyseems [...] anxious all the time since play aobut ialwsss8lujdi agobefore that she was fine some sleep [...] to Irrit able bowel syndrome, unspecified type yegu8wrzitnjst been off medswill restart Related to Anxiety [...] - For more information please go to http://[email or web address]/contents/marian selbyc-aaixvcanxvb-vmrwuwfp-rhinitis-seasona l-allergies Related to Seasonal allergic rhinitis due [...] obtained for 09/05 at 1 PM at [facility], ground level at [facility]. Faxed copy of ultrasound sent to [...] - For more information please go to [email or web address].com/contents/marian selbyp-cyhusmgunbq-ryaxpzjl-rhinitis-seasona l-allergies Related to Seasonal allergic rhinitis due [...] - For more information please go to http://www.[email or web address]/contents/marian selbyn-rliemosozjs-dwmqvpun-rhinitis-seasona l-allergies Related to Seasonal allergic rhinitis due [...] - For more information please go to http://www.[employer]/contents/marian w-dkcsesxxzvo-iukahqas-rhinitis-seasona l-allergies Related to Seasonal allergic rhinitis due [...] - For more information please go to [email or web address]://[email or web address] [facility].[employer]/contents/marian v-xsadjfnbbzu-smfqormm-rhinitis-seasona l-allergies Related to Seasonal allergic rhinitis due [...]
--- OUTSIDE RECORDS SUMMARY | 2025-01-24 06:31 | XMS_ITS | Clinical Summary ---
Author Organization [facility] Address [address] [place] [address] Care Team Providers Care Health And Safety Director Name Role Phone No, Physician Primary Care Provider [phone] Ryland Iniguez MD Unavailable [phone] Allergies No known active allergies Medications albuterol [...] on file Legal Sex Female 12:38 AM [employer] Gender Identity Not on file Sexual Orientation [...] CIGNA CIGNA CIGNA CIGNA CIGNA Care Teams Health And Safety Director Relationship Specialty Start Date End Date No, Physician PCP - General 02/20/23 [place] [id number] [address] 02/20/23
[2025-01-24] MEDS: MORPHINE SULFATE (*CRX) 4 MG/ML INJ IV PUSH (06:49)
[2025-01-24] MEDS: ONDANSETRON INJ 4 MG/2 ML VIAL IV PUSH (06:50)
[2025-01-24 07:19] LABS: Hematocrit 34.8 % (37.0-47.0); Hemoglobin 11.8 g/dL (12.0-15.0)
[2025-01-24 07:44] VITALS: BP 92/75; PULSE 59; RESP 18; O2SAT 99
[2025-01-24 08:01] LABS: Influenza A QL RT-PCR Negative (Negative); Influenza B QL RT-PCR Negative (Negative); SARS-CoV-2 RNA PCR Negative (Negative)
[2025-01-24] MEDS: PANTOPRAZOLE 40 MG TABLET PO (09:14)
[2025-01-24 09:15] VITALS: BP 112/74; PULSE 62; RESP 18; O2SAT 98
== END 2025-01-24 09:18 | disposition home or self-care (01) ==
PROVIDERS: Emergency Provider Student in an Organized Health Care Education/Training Program
DX: K92.1 Melena (principal); R10.13 Epigastric pain; Z20.822 Contact with and (suspected) exposure to COVID-19
CPT/HCPCS: 36415; 74177; 80053; 81003; 81025; 83690; 85014; 85018; 85025; 87636; 96374; 96375; 99284; A9270; J2270; J2405; Q9967

== ENCOUNTER 2025-07-13 07:49 | Outpatient (CLI) | payer OTHER, SELFPAY | END 2025-07-13 07:50 | disposition home or self-care (01) | LOC: ANHAUDASC 07:49 | PROVIDERS: Visit Provider Otolaryngology | DX: H90.3 Sensorineural hearing loss, bilateral (principal); H93.25 Central auditory processing disorder | CPT/HCPCS: 92557; 92567 ==